=== PATIENT | female | born 1975 | race Caucasian/White ===

== ENCOUNTER 2018-01-24 20:01 | Inpatient (IN) | payer MEDICAID ==
[~2018-01-24] VITALS: Ht 167.6 cm; Wt 77.1 kg
[~2018-01-24 20:01] MED LIST: ASPI-1063 PO; ATEN-41 PO; ATOR10TA68 PO; CARV3.1246 PO; DULA1.5P SQ; FAMO-129 PO; FOLI-43 PO; GLU500 PO; LISI-209 PO
[2018-01-24 20:17] VITALS: BP_SYST 155
[2018-01-24] MEDS ORDERED: NACL 0.9% 1,000 ML IV ONE (20:59)
[2018-01-24] MEDS ORDERED: INSULIN REGULAR, HUMAN 10 UNITS/0.1 ML INJ IVP ONE (21:00)
[2018-01-24] MEDS ORDERED: ENALAPRILAT DIHYDRATE 1.25 MG/ML VIAL IVP ONE (21:00)
[2018-01-24 21:11] LABS: BASOPHILS % (AUTO) 0.8 % (0.0-2.0); EOSINOPHILS # (AUTO) 0.1 K/uL (0.0-0.4); EOSINOPHILS % (AUTO) 1.8 % (0.0-4.0); HEMATOCRIT 41.8 % (36-48); HEMOGLOBIN 14.3 g/dL (12.0-16.0); LYMPHOCYTES # (AUTO) 1.7 K/uL (1.0-5.5); LYMPHOCYTES % (AUTO) 31.3 % (20.5-51.5); MEAN CORPUSCULAR HEMOGLOBIN 33 pg (27-31); MEAN CORPUSCULAR HGB CONC 34 % (32-36); MEAN CORPUSCULAR VOLUME 97 fL (79.0-98.0); MONOCYTES # (AUTO) 0.3 K/uL (0.0-1.0); MONOCYTES % (AUTO) 4.8 % (1.7-9.3); NEUTROPHILS # (AUTO) 3.3 K/uL (1.8-7.7); NEUTROPHILS % (AUTO) 61.3 % (40.0-70.0); PLATELET COUNT (AUTO) 367 K/uL (130-430); RED BLOOD CELL COUNT(AUTO) 4.31 MIL/uL (4.2-6.2); RED CELL DISTRIBUTION WIDTH 12.4 % (9.0-15.0); WHITE BLOOD COUNT (AUTO) 5.4 K/uL (4.8-10.8)
[2018-01-24 21:13] LABS: CALCIUM 9.4 mg/dL (8.4-11.0); CREATININE 0.79 mg/dL (0.55-1.30); POTASSIUM 3.4 mmol/L (3.5-5.1)
[2018-01-24 21:17] LABS: ALBUMIN 3.4 g/dL (3.4-4.8); TOTAL BILIRUBIN 0.5 mg/dL (0.0-1.0)
[2018-01-24] MEDS ORDERED: TETRACAINE HCL 0.5% OPHTHALMIC DROPS 15 ML OP ONE ×2 (21:30→21:35)
[2018-01-24] MEDS ORDERED: ACETAMINOPHEN 325 MG TABLET PO PRN (23:45)
[2018-01-24] MEDS ORDERED: cloNIDine HCL 0.1 MG TABLET PO PRN (23:45)
[2018-01-25 00:12] VITALS: BP_SYST 135
[2018-01-25] MEDS ORDERED: INSU100I26 SQ (00:23)
[2018-01-25] MEDS ORDERED: INSU100V SQ (00:23)
[2018-01-25] MEDS ORDERED: DAPA10TA PO (00:23)
[2018-01-25 00:35] VITALS: BP_SYST 135
[2018-01-25] MEDS ORDERED: LEVOFLOXACIN 500 MG/D5W 100 ML IV ONE (01:05)
[2018-01-25] MEDS: LEVOFLOXACIN 500 MG/D5W 100 ML IV SCH (01:09)
[2018-01-25] MEDS ORDERED: POTASSIUM CHLORIDE 20 MEQ TAB.PRT.SR PO ONE (02:15)
[2018-01-25] MEDS: INSULIN REGULAR, HUMAN 100 UNITS/ML, 10 ML VIAL (novoLIN R) SUBCUT PRN ×4 (06:20→21:40)
[2018-01-25] MEDS: ATENOLOL 25 MG TABLET(TENORMIN) PO SCH (08:05)
[2018-01-25] MEDS: metFORMIN HCL 500 MG TABLET PO SCH ×2 (08:05→17:00)
[2018-01-25] MEDS: LISINOPRIL 5 MG TABLET PO SCH (08:06)
[2018-01-25] MEDS: ASPIRIN 81 MG TABLET(ECOTRIN) PO SCH (08:06)
[2018-01-25] MEDS: FOLIC ACID 1 MG TABLET PO SCH (08:06)
[2018-01-25 08:17] VITALS: BP_SYST 140
[2018-01-25 11:29] VITALS: BP_SYST 133
[2018-01-25 11:34] LABS: BILIRUBIN,URINE 2+ (NEGATIVE); BLOOD, URINE 3+ (NEGATIVE); CLARITY/URINE CLOUDY (CLEAR); COLOR,URINE AMBER (YELLOW); GLUCOSE,URINE 3+ (NEGATIVE); KETONES,URINE 3+ (NEGATIVE); LEUKOCYTE ESTERASE ,URINE NEGATIVE (NEGATIVE); NITRITE, URINE NEGATIVE (NEGATIVE); PROTEIN URINE 2+ (NEGATIVE); UROBILINOGEN,URINE 0.2 (0.2-1.0)
[2018-01-25 11:43] LABS: BARBITURATE, URINE NEGATIVE (NEG <=200); BENZODIAZEPINE, URINE NEGATIVE (NEG <=150); CANNABINOID, URINE NEGATIVE (NEG <=50); COCAINE, URINE NEGATIVE (NEG <=150); METHAMPHETAMINES SCREEN,URINE POSITIVE (NEG <=500); OPIATE, URINE NEGATIVE (NEG <=100); PHENCYCLIDINE SCREEN,URINE NEGATIVE (NEG <=25); UR TRICYCLIC ANTIDEPRESSANTS NEGATIVE (NEG <=300); URINE AMPHETAMINE POSITIVE (NEG <=500); URINE METHADONE NEGATIVE (NEG <=200); URINE OXYCODONE SCREEN NEGATIVE (NEG <=100); URINE PROPOXYPHENE SCREEN NEGATIVE (NEG <=300)
[2018-01-25 11:55] LABS: BACTERIA,URINE MODERATE /HPF (None Seen); YEAST,URINE None Seen /HPF (None Seen)
[2018-01-25 11:56] LABS: COARSE GRANULAR CASTS,URINE 1+ /LPF (None Seen); MUCUS,URINE None Seen /LPF (None Seen)
[2018-01-25 15:24] VITALS: BP_SYST 124
[2018-01-25] MEDS ORDERED: LEVOFLOXACIN 500 MG/D5W 100 ML IV SCH (16:00)
[2018-01-25 20:00] VITALS: BP_SYST 114
[2018-01-25] MEDS: NITROFURANTOIN MONOHYD/M-CRYST 100 MG CAPSULE PO SCH (21:36)
[2018-01-26] VITALS: BP_SYST 122
[2018-01-26] MEDS: LEVOFLOXACIN 500 MG/D5W 100 ML IV SCH (00:02)
[2018-01-26] MEDS: INSULIN REGULAR, HUMAN 100 UNITS/ML, 10 ML VIAL (novoLIN R) SUBCUT PRN ×2 (06:10→11:43)
[2018-01-26 06:35] LABS: BASOPHILS # (AUTO) 0.1 K/uL (0.0-0.2); BASOPHILS % (AUTO) 1.8 % (0.0-2.0); EOSINOPHILS # (AUTO) 0.2 K/uL (0.0-0.4); EOSINOPHILS % (AUTO) 3.6 % (0.0-4.0); HEMOGLOBIN 11.7 g/dL (12.0-16.0); LYMPHOCYTES # (AUTO) 1.4 K/uL (1.0-5.5); MEAN CORPUSCULAR HEMOGLOBIN 34 pg (27-31); MEAN CORPUSCULAR HGB CONC 35 % (32-36); MEAN CORPUSCULAR VOLUME 98 fL (79.0-98.0); MONOCYTES # (AUTO) 0.3 K/uL (0.0-1.0); MONOCYTES % (AUTO) 7.1 % (1.7-9.3); NEUTROPHILS # (AUTO) 2.5 K/uL (1.8-7.7); NEUTROPHILS % (AUTO) 55.5 % (40.0-70.0); PLATELET COUNT (AUTO) 277 K/uL (130-430); RED BLOOD CELL COUNT(AUTO) 3.48 MIL/uL (4.2-6.2); RED CELL DISTRIBUTION WIDTH 12.7 % (9.0-15.0); WHITE BLOOD COUNT (AUTO) 4.5 K/uL (4.8-10.8)
[2018-01-26 07:07] LABS: ALBUMIN 2.6 g/dL (3.4-4.8); CALCIUM 8.2 mg/dL (8.4-11.0); CREATININE 0.62 mg/dL (0.55-1.30); POTASSIUM 4.6 mmol/L (3.5-5.1); TOTAL BILIRUBIN 0.4 mg/dL (0.0-1.0)
[2018-01-26 08:05] VITALS: BP_SYST 132
[2018-01-26] MEDS: NITROFURANTOIN MONOHYD/M-CRYST 100 MG CAPSULE PO SCH (08:53)
[2018-01-26] MEDS: ATENOLOL 25 MG TABLET(TENORMIN) PO SCH (08:54)
[2018-01-26] MEDS: LISINOPRIL 5 MG TABLET PO SCH (08:55)
[2018-01-26] MEDS: ASPIRIN 81 MG TABLET(ECOTRIN) PO SCH (08:55)
[2018-01-26] MEDS: FOLIC ACID 1 MG TABLET PO SCH (08:55)
[2018-01-26] MEDS: metFORMIN HCL 500 MG TABLET PO SCH (08:55)
[2018-01-26 11:32] VITALS: BP_SYST 136
[2018-01-26 13:52] VITALS: BP_SYST 136
[2018-01-26] MEDS ORDERED: LEVO250T20 PO (13:56)
== END 2018-01-26 14:41 | disposition home or self-care (01) | DRG 463 ==
LOC: SED 20:01 → STU 23:35 → MERGE 23:35 → STU 23:57
PROVIDERS: ADMIT Internal Medicine; ATTEND Internal Medicine
DX: N39.0 Urinary tract infection, site not specified (principal); J18.1 Lobar pneumonia, unspecified organism; I11.0 Hypertensive heart disease with heart failure; I50.9 Heart failure, unspecified; E87.1 Hypo-osmolality and hyponatremia; J20.9 Acute bronchitis, unspecified; F10.10 Alcohol abuse, uncomplicated; F15.10 Other stimulant abuse, uncomplicated; E87.6 Hypokalemia; E11.9 Type 2 diabetes mellitus without complications; Z88.0 Allergy status to penicillin; Z79.899 Other long term (current) drug therapy; Z79.82 Long term (current) use of aspirin
CPT/HCPCS: 36415; 36600; 71045; 80053; 80061; 80307; 81000-TC; 82803-TC; 82962; 83036; 83605; 83735-TC; 85025; 87040-TC; 87086; 96361; 96374; 99285; J1815; J1956; J7030; J7050

== ENCOUNTER 2018-06-11 21:04 | Inpatient (IN) | payer MEDICAID ==
[~2018-06-11] VITALS: Ht 167.6 cm; Wt 77.1 kg
[~2018-06-11 21:04] MED LIST changes: -ASPI-1063 PO; +ASPI-1153 PO; -ATOR10TA68 PO; -CARV3.1246 PO; +DAPA10TA PO; -DULA1.5P SQ; +INSU100I26 SQ; +INSU100V SQ; +LEVO250T2 PO
[2018-06-11 21:50] VITALS: BP_SYST 125
--- NOTE | 2018-06-11 21:50 | NUR ---
Patient to ER bed Hallway 1 for evaluation. Side rails up.
--- NOTE | 2018-06-11 21:55 | NUR ---
Patient to ER via triage for evaluation of abdominal pain with nausea/vomiting x 3 days, patient also reports constipation x 2 day. Patient is awake, alert and oriented in no acute distress, vital signs stable, respirations even and unlabored, skin warm and dry to touch. Patient able to ambulate to hallway bed with family at her side. Patient to bathroom to provide urine sample. Awaiting evaluation by ER MD, will continue to observe and assess.
--- NOTE | 2018-06-11 22:15 | NUR ---
ER at bedside examining patient.
[2018-06-11] MEDS ORDERED: NACL 0.9% 1,000 ML IV ONE (22:22)
[2018-06-11] MEDS ORDERED: ONDANSETRON HCL 4 MG/2 ML VIAL IVP ONE (22:30)
[2018-06-11] MEDS ORDERED: MORPHINE 4 MG/ML INJ. SYRINGE IM ONE (22:30)
[2018-06-11 22:44] LABS: BILIRUBIN,URINE NEGATIVE (NEGATIVE); BLOOD, URINE TRACE (NEGATIVE); CLARITY/URINE HAZY (CLEAR); COLOR,URINE YELLOW (YELLOW); GLUCOSE,URINE 3+ (NEGATIVE); KETONES,URINE 3+ (NEGATIVE); LEUKOCYTE ESTERASE ,URINE NEGATIVE (NEGATIVE); NITRITE, URINE NEGATIVE (NEGATIVE); PROTEIN URINE 2+ (NEGATIVE); UROBILINOGEN,URINE 0.2 (0.2-1.0)
[2018-06-11 22:47] LABS: RBC,URINE 0-3 /HPF (0-3)
[2018-06-11 22:48] LABS: BACTERIA,URINE MANY /HPF (None Seen); WBC,URINE 0-3 /HPF (0-3)
--- NOTE | 2018-06-11 22:53 | NUR ---
Confirmed with Dr Kenny that he wanted the Morphine given IV and not IM. Patient medicated with Morphine 4 mg per MD order.
--- NOTE | 2018-06-11 23:00 | NUR ---
Patient resting quietly in no acute distress, vital signs stable, respirations even and unlabored, skin warm and dry to touch. Awaiting dispo.
[2018-06-11 23:45] LABS: BASOPHILS # (AUTO) 0.1 K/uL (0.0-0.2); BASOPHILS % (AUTO) 0.7 % (0.0-2.0); EOSINOPHILS # (AUTO) 0.2 K/uL (0.0-0.4); HEMATOCRIT 41.3 % (36-48); HEMOGLOBIN 13.7 g/dL (12.0-16.0); LYMPHOCYTES # (AUTO) 1.2 K/uL (1.0-5.5); LYMPHOCYTES % (AUTO) 14.8 % (20.5-51.5); MEAN CORPUSCULAR HEMOGLOBIN 33 pg (27-31); MEAN CORPUSCULAR HGB CONC 33 % (32-36); MEAN CORPUSCULAR VOLUME 99 fL (79.0-98.0); MONOCYTES # (AUTO) 0.4 K/uL (0.0-1.0); MONOCYTES % (AUTO) 4.4 % (1.7-9.3); NEUTROPHILS # (AUTO) 6.2 K/uL (1.8-7.7); NEUTROPHILS % (AUTO) 77.1 % (40.0-70.0); PLATELET COUNT (AUTO) 302 K/uL (130-430); RED BLOOD CELL COUNT(AUTO) 4.18 MIL/uL (4.2-6.2); RED CELL DISTRIBUTION WIDTH 13.5 % (9.0-15.0); WHITE BLOOD COUNT (AUTO) 8.1 K/uL (4.8-10.8)
--- NOTE | 2018-06-12 | NUR ---
Patient resting quietly in no acute distress, awaiting dispo.
[2018-06-12 00:07] LABS: PROTHROMBIN TIME 9.7 SECS (9.5-12.5)
[2018-06-12 00:49] LABS: POTASSIUM 3.7 mmol/L (3.5-5.1)
[2018-06-12 00:50] LABS: CREATININE 0.66 mg/dL (0.55-1.30); TOTAL BILIRUBIN 0.4 mg/dL (0.0-1.0)
[2018-06-12 00:53] LABS: ALBUMIN 2.7 g/dL (3.4-4.8)
[2018-06-12] MEDS ORDERED: HYDROmorphone 1 MG INJ. 1 MG/ML AMPUL IVP ONE (01:00)
[2018-06-12] MEDS ORDERED: fentaNYL CITRATE/PF 100 MCG/2 ML AMP IVP ONE (01:45)
[2018-06-12] MEDS ORDERED: ONDANSETRON HCL 4 MG/2 ML VIAL IVP PRN (02:30)
[2018-06-12] MEDS ORDERED: ACETAMINOPHEN 325 MG TABLET PO PRN (02:30)
[2018-06-12] MEDS ORDERED: SSNOVOLOG SUBCUT (02:47)
[2018-06-12 03:30] VITALS: BP_SYST 121
--- NOTE | 2018-06-12 03:30 | NUR ---
ADMISSION NOTE Received patient from ER via gurney. Patient admitted with diagnosis of PANCREATITIS. Patient is awake, alert, oriented X 4. Patient oriented to hospital room, call light, toileting, pain management and safety-teach back done. Patient informed that JAYNA will be HER nurse and that their room number is 120B. Personal belongings checked and Belongings List documented. Call light within reach.
--- NOTE | 2018-06-12 03:30 | NUR ---
Patient will be admitted to care of Lewis AYOUB. Admitted to tele unit. Will go to room 120B. Belongings list completed. Summary report printed. Report will be given at bedside.
[2018-06-12] MEDS: NACL 0.9% 1,000 ML IV SCH ×3 (03:33→20:27)
[2018-06-12] MEDS: MORPHINE 4 MG/ML INJ. SYRINGE IVP PRN ×3 (04:09→13:13)
--- NOTE | 2018-06-12 05:24 | NUR ---
CONSULTATION PAGED/CALLED Reason for Consultation: PANCREATITIS Person Who was Notified: JOYCE Consulting Physician: DR. JONES; ONCALL-PANCREATITIS Pickle Cutter Specialty: GI Ordering Physician: SHUKRI VEGA
--- NOTE | 2018-06-12 05:30 | NUR ---
Rounds: Patient is resting in bed with eyes closed, not showing any acute distress. Breathing is even and unlabored. IV fluids infusing well to patient's IV site. Call light is with patient. Safety, fall precautions in place. Will continue to monitor.
[2018-06-12] MEDS: PANTOPRAZOLE SODIUM 40 MG/VIAL (PROTONIX) IVP SCH (06:02)
[2018-06-12 06:12] LABS: BASOPHILS % (AUTO) 0.7 % (0.0-2.0); EOSINOPHILS # (AUTO) 0.3 K/uL (0.0-0.4); EOSINOPHILS % (AUTO) 3.9 % (0.0-4.0); HEMATOCRIT 40.8 % (36-48); HEMOGLOBIN 13.4 g/dL (12.0-16.0); LYMPHOCYTES # (AUTO) 1.2 K/uL (1.0-5.5); MEAN CORPUSCULAR HEMOGLOBIN 33 pg (27-31); MEAN CORPUSCULAR HGB CONC 33 % (32-36); MEAN CORPUSCULAR VOLUME 100 fL (79.0-98.0); MONOCYTES # (AUTO) 0.5 K/uL (0.0-1.0); MONOCYTES % (AUTO) 7.9 % (1.7-9.3); NEUTROPHILS # (AUTO) 4.9 K/uL (1.8-7.7); NEUTROPHILS % (AUTO) 70.5 % (40.0-70.0); PLATELET COUNT (AUTO) 294 K/uL (130-430); RED CELL DISTRIBUTION WIDTH 13.2 % (9.0-15.0); WHITE BLOOD COUNT (AUTO) 6.9 K/uL (4.8-10.8)
[2018-06-12 06:23] LABS: ALBUMIN 2.7 g/dL (3.4-4.8); CALCIUM 8.2 mg/dL (8.4-11.0); CREATININE 0.66 mg/dL (0.55-1.30); TOTAL BILIRUBIN 0.7 mg/dL (0.0-1.0)
--- NOTE | 2018-06-12 06:50 | NUR ---
Closing note: Patient is sleeping in bed, no signs or symptoms of acute distress noted. IV fluids infusing well to patient's right forearm, site is patent and benign. Call light is with patient. All needs met and attended to. Will endorse care to dayshift RN.
--- NOTE | 2018-06-12 07:10 | NUR ---
Seen by Dr. Modi: Patient seen by Dr. Modi at this time. Received order to change patient's diet to clear liquids. RN will input order.
[2018-06-12 08:00] VITALS: BP_SYST 147
[2018-06-12] MEDS ORDERED: LORazepam 2 MG/ML VIAL IVP PRN (08:00)
--- NOTE | 2018-06-12 08:00 | NUR ---
Initial notes: Patient on bed sleeping. Stable. I.V. access patent. Safety measures in placed. Call light within reach. Report received at bedside.
--- NOTE | 2018-06-12 08:02 | NUR ---
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
[2018-06-12] MEDS ORDERED: FOLIC ACID 1 MG TABLET PO SCH (09:00)
[2018-06-12] MEDS: THIAMINE HCL 100 MG TABLET PO SCH (09:28)
[2018-06-12] MEDS: ATENOLOL 25 MG TABLET(TENORMIN) PO SCH (09:29)
[2018-06-12] MEDS: NEPHROVITE, (FOLIC ACID/VITAMIN B COMP W-C 1 TAB) PO SCH (09:29)
[2018-06-12] MEDS: LISINOPRIL 5 MG TABLET PO SCH (09:29)
--- NOTE | 2018-06-12 09:43 | NUR ---
rounds: Patient woke up and complaining of back pain. Due pain meds given.
[2018-06-12] MEDS ORDERED: INSULIN REGULAR, HUMAN 100 UNITS/ML, 10 ML VIAL SUBCUT SCH (11:30)
--- NOTE | 2018-06-12 12:24 | NUR ---
rounds: patient sleeping. no distress noted.
[2018-06-12 12:57] VITALS: BP_SYST 143
--- NOTE | 2018-06-12 13:27 | NUR ---
rounds: assisted patient to the toilet. able to walk and tolerated well.
[2018-06-12] MEDS ORDERED: DEXTROSE 50%-WATER 50 ML DISP.SYRIN IVP PRN ×2 (14:45)
[2018-06-12] MEDS ORDERED: GLUCOSE 15 GM GEL (in 37.5 GM TUBE) PO PRN ×2 (14:45)
--- NOTE | 2018-06-12 16:00 | NUR ---
rounds: patient sleeping. no distress noted.
[2018-06-12 16:32] VITALS: BP_SYST 136
[2018-06-12] MEDS: INSULIN REGULAR, HUMAN 100 UNITS/ML, 10 ML VIAL (novoLIN R) SUBCUT PRN ×2 (17:06→20:50)
--- NOTE | 2018-06-12 18:56 | NUR ---
closing notes: Patient on bed resting. Stable. Needs attended. Safety measures in placed. Call light within reach. Report will be given to overnight stocker.
--- NOTE | 2018-06-12 19:42 | NUR ---
Initial note: Received handoff report from dayshift RN. Patient is in bed sleeping. Does not show any signs or symptoms of acute distress. Patient is on room air, breathing is unlabored with even chest rise and fall. NS infusing at 125 ML/HR to patient's right forearm IV, site is patent and benign. SCD's in place. Bed is locked in lowest position, side rails raised, bed alarm on, room close to nurses station. Call light is with patient. Will continue with plan of care.
[2018-06-12 20:15] VITALS: BP_SYST 120
--- NOTE | 2018-06-12 21:31 | NUR ---
Assisted to bathroom: Patient was assisted by RN to the bathroom to void. Patient was able to ambulate with steady gait. Patient denies difficulty breathing or pain while ambulating. Assisted patient to a chair at bedside per patient request. Instructed patient to use call light for any needs, patient verbalized understanding. Safety, fall precautions observed. Will continue monitoring.
--- NOTE | 2018-06-12 23:40 | NUR ---
Rounds: Patient is resting in bed with eyes closed, no acute distress noted. Patient's breathing is unlabored with even chest rise and fall. IV fluids infusing well to IV site. Call light is with patient. Safety and fall precautions in place. Will continue monitoring.
[2018-06-13] VITALS: BP_SYST 136
--- NOTE | 2018-06-13 01:45 | NUR ---
Rounds: Patient is asleep in bed, no signs or symptoms of acute distress noted. Patient's respirations are even and unlabored on room air. IV fluids infusing well to site, no infiltration or redness at site. Safety and fall precautions in place. Call light is with patient. Will continue monitoring.
--- NOTE | 2018-06-13 03:29 | NUR ---
Assisted to bathroom: Patient was assisted to bathroom to void. RN remained at patient's side during ambulation. Patient was able to ambulate with steady gait, requiring little to no assistance. No complaints of pain or shortness of breath while ambulating. Assisted patient back to bed, resumed IVF per MD order. Safety and fall precautions observed. Call light is with patient. Will continue monitoring.
[2018-06-13] MEDS: NACL 0.9% 1,000 ML IV SCH ×2 (03:56→12:29)
[2018-06-13] MEDS: MORPHINE 4 MG/ML INJ. SYRINGE IVP PRN (04:08)
--- NOTE | 2018-06-13 04:16 | NUR ---
Pain management: Patient complained of 7/10 pain to her left upper abdomen. PRN Morphine 2MG indicated. Educated patient regarding medication indication and side effects, patient verbalized understanding. Administered medication intravenously per MD order, patient shows no acute distress. Will continue monitoring.
[2018-06-13] MEDS: PANTOPRAZOLE SODIUM 40 MG/VIAL (PROTONIX) IVP SCH (06:29)
--- NOTE | 2018-06-13 06:30 | NUR ---
Closing note: Patient is asleep in bed, no acute distress noted. Patient's breathing is even and unlabored. IV fluids infusing well to patient's right forearm. Most recent bedside blood glucose was 144, no insulin coverage provided per sliding scale. All needs met and attended to. Call light is with patient. Safety, fall precautions observed. Will endorse care to dayshift RN.
[2018-06-13 06:44] LABS: CALCIUM 7.6 mg/dL (8.4-11.0); CREATININE 0.53 mg/dL (0.55-1.30); POTASSIUM 3.4 mmol/L (3.5-5.1)
[2018-06-13 06:57] LABS: ALBUMIN 2.3 g/dL (3.4-4.8); TOTAL BILIRUBIN 0.5 mg/dL (0.0-1.0)
[2018-06-13 08:00] VITALS: BP_SYST 161
[2018-06-13] MEDS ORDERED: NACL 0.9% 1,000 ML IV ONE (08:00)
[2018-06-13] MEDS ORDERED: chlordiazePOXIDE HCL 25 MG CAPSULE PO SCH (08:00)
--- NOTE | 2018-06-13 08:00 | NUR ---
initial notes rec patient awake alert with hob elevated. ivf infusing well on the r forearm.no infiltration noted. hob elevated and resp easy and unlabored. no acute ditress noted. denies pain at this time. call light within reached and knows when to call for assists. bed in low position and side rails up and locked. seen by dr juárez and dr vizcaino at bedside. ambulates to the br with min assists and max well. will continue to monitor patient
[2018-06-13] MEDS: THIAMINE HCL 100 MG TABLET PO SCH (09:08)
[2018-06-13] MEDS: NEPHROVITE, (FOLIC ACID/VITAMIN B COMP W-C 1 TAB) PO SCH (09:08)
[2018-06-13] MEDS: ATENOLOL 25 MG TABLET(TENORMIN) PO SCH (09:08)
[2018-06-13] MEDS: LISINOPRIL 5 MG TABLET PO SCH (09:09)
[2018-06-13] MEDS: chlordiazePOXIDE HCL 25 MG CAPSULE PO SCH ×3 (09:09→17:40)
--- NOTE | 2018-06-13 09:20 | NUR ---
Nutrition Update Jey Scale 17 noted. Pt admitted for pancreatitis Diet: full liquid diet BMI: 27.4 kg/m2 RD to follow per nutrition care standards.
--- NOTE | 2018-06-13 10:30 | NUR ---
rounds due meds were given and went to sleep after. call light within reached.
[2018-06-13 12:00] VITALS: BP_SYST 140
--- NOTE | 2018-06-13 12:30 | NUR ---
rounds blood sugar was checked and no hypo hyperglycemic reaction noted, friend at bed and coaching patient to eat . call [facility] within [id number]..
[2018-06-13] MEDS: INSULIN REGULAR, HUMAN 100 UNITS/ML, 10 ML VIAL (novoLIN R) SUBCUT PRN ×2 (12:34→17:47)
--- NOTE | 2018-06-13 14:00 | NUR ---
rounds asleep when rounds made. call light withn reached.
[2018-06-13 16:00] VITALS: BP_SYST 128
--- NOTE | 2018-06-13 16:00 | NUR ---
rounds ambulates to the br at intervals. denies pain. bed in the lowest position. call light within reached.
--- NOTE | 2018-06-13 18:30 | NUR ---
closing notes pt wants to go home and dr bonilla was paged. awaiting to call back. no sob noted, no h ypo hyperglycemic reaction noted. call light within reached.
--- NOTE | 2018-06-13 19:45 | NUR ---
OPENING NOTES Pt and endorsement received from day shift nurse. Pt is resting with both eyes closed. With visible chest rise and fall noted. No signs of acute distress noted. Call light with pt, bed alarm on and at its lowest level. Will continue to monitor.
--- NOTE | 2018-06-13 20:08 | NUR ---
SPOKE TO DR. MONREAL Spoke to Dr. Monreal over the phone about pt wanting to go home. Dr. Monreal said to let her sign an AMA form once pt has decided to go home.
--- NOTE | 2018-06-13 20:10 | NUR ---
SPOKE TO PATIENT ABOUT AMA FORM Spoke to the pt and let her know she will sign an AMA form once she decided to go home. Educated pt that its beneficial that she stays for her to be observed and properly treated but pt insists on going home. Informed Charge Nurse Yan.
--- NOTE | 2018-06-13 20:15 | NUR ---
PT SIGNED AMA FORM Pt signed AMA form. IVF removed and identification arm band removed.
--- NOTE | 2018-06-13 20:30 | NUR ---
PT WENT HOME Pt left the room with a family member, pt ambulatory and no signs of acute distress noted. Informed Charge Nurse Yan.
--- NOTE | 2018-06-13 22:22 | NUR ---
SPOKE TO DR. MONREAL Spoke to Dr. Monreal over the phone about pt wanting to go home. Dr. Monreal said to let her sign an AMA form once pt has decided to go home. Addendum: 06/13/18 at 2224 by Ela Roche RN INCORRECT TIME.
== END 2018-06-13 20:23 | disposition left against medical advice (07) | DRG 282 ==
LOC: SED 21:04 → STU 06-12 02:20
PROVIDERS: ADMIT Internal Medicine; ATTEND Internal Medicine
DX: K85.20 Alcohol induced acute pancreatitis without necrosis or infection (principal); E43 Unspecified severe protein-calorie malnutrition; I11.0 Hypertensive heart disease with heart failure; I50.9 Heart failure, unspecified; Z53.21 Procedure and treatment not carried out due to patient leaving prior to being seen by health care provider; E11.9 Type 2 diabetes mellitus without complications; F10.20 Alcohol dependence, uncomplicated; F32.9 Major depressive disorder, single episode, unspecified; F17.210 Nicotine dependence, cigarettes, uncomplicated; F15.10 Other stimulant abuse, uncomplicated; Z88.0 Allergy status to penicillin; Z79.82 Long term (current) use of aspirin; Z79.899 Other long term (current) drug therapy; Z98.891 History of uterine scar from previous surgery
CPT/HCPCS: 36415; 76700-TC; 80053; 80061; 81000-TC; 82150-TC; 82962; 83690-TC; 85025; 85610-TC; 87086; 96361; 96374; 96375; 99285; C9113; J1170; J1815; J2270; J2405; J3010; J7030

== ENCOUNTER 2018-12-01 09:49 | Inpatient (IN) | payer MEDICAID ==
[~2018-12-01] VITALS: Ht 167.6 cm; Wt 73.0 kg
[2018-12-01] VITALS (12 sets, daily range): BP systolic 102–184
[~2018-12-01 09:49] MED LIST changes: -INSU100I26 SQ; -INSU100V SQ; -LEVO250T2 PO; +SSNOVOLOG SUBCUT
[2018-12-01] MEDS ORDERED: NACL 0.9% 1,000 ML IV ONE (10:15)
[2018-12-01 10:46] LABS: BASOPHILS # (AUTO) 0.1 K/uL (0.0-0.2); BASOPHILS % (AUTO) 0.8 % (0.0-2.0); EOSINOPHILS % (AUTO) 0.1 % (0.0-4.0); HEMATOCRIT 45.7 % (36-48); HEMOGLOBIN 14.6 g/dL (12.0-16.0); LYMPHOCYTES # (AUTO) 1.2 K/uL (1.0-5.5); LYMPHOCYTES % (AUTO) 8.2 % (20.5-51.5); MEAN CORPUSCULAR HEMOGLOBIN 33 pg (27-31); MEAN CORPUSCULAR HGB CONC 32 % (32-36); MEAN CORPUSCULAR VOLUME 105 fL (79.0-98.0); MONOCYTES # (AUTO) 0.6 K/uL (0.0-1.0); NEUTROPHILS # (AUTO) 12.6 K/uL (1.8-7.7); NEUTROPHILS % (AUTO) 86.9 % (40.0-70.0); PLATELET COUNT (AUTO) 437 K/uL (130-430); RED BLOOD CELL COUNT(AUTO) 4.37 MIL/uL (4.2-6.2); RED CELL DISTRIBUTION WIDTH 14.6 % (9.0-15.0); WHITE BLOOD COUNT (AUTO) 14.6 K/uL (4.8-10.8)
[2018-12-01 10:58] LABS: CALCIUM 9.9 mg/dL (8.4-11.0); CREATININE 1.39 mg/dL (0.55-1.30); POTASSIUM 5.4 mmol/L (3.5-5.1)
[2018-12-01 11:03] LABS: ALBUMIN 3.7 g/dL (3.4-4.8); TOTAL BILIRUBIN 0.6 mg/dL (0.0-1.0)
[2018-12-01] MEDS ORDERED: INSULIN REGULAR, HUMAN 100 UNITS in NS 99 ML IV ONE ×2 (11:15)
[2018-12-01] MEDS ORDERED: INSULIN REGULAR, HUMAN 10 UNITS/0.1 ML INJ IVP ONE (11:15)
[2018-12-01] MEDS ORDERED: LORazepam 2 MG/ML VIAL (FOR ER USE) IVP ONE (12:00)
[2018-12-01] MEDS ORDERED: SODIUM BICARBONATE 8.4% JECT 50 MEQ in 0.45% NACL 1,000 ML IV SCH (12:15)
[2018-12-01] MEDS ORDERED: NACL 0.9% 1,000 ML IV SCH ×3 (13:00→23:30)
[2018-12-01] MEDS ORDERED: CORCR10 PO (13:05)
[2018-12-01] MEDS ORDERED: FURO-150 PO (13:05)
[2018-12-01] MEDS ORDERED: POTA8TAB4 PO (13:05)
[2018-12-01] MEDS ORDERED: FERR140T2 PO (13:05)
[2018-12-01] MEDS ORDERED: DOXY100C PO (13:05)
[2018-12-01] MEDS ORDERED: GABA-529 PO (13:05)
[2018-12-01] MEDS ORDERED: SPIR25TA6 PO (13:05)
[2018-12-01] MEDS ORDERED: DEXTROSE 50% JECT 50 ML DISP.SYRIN IVP PRN (14:30)
[2018-12-01] MEDS ORDERED: INSULIN REGULAR, HUMAN 100 UNITS in NS 99 ML IV PRN ×4 (14:30→16:15)
[2018-12-01 15:23] LABS: BASOPHILS # (AUTO) 0.2 K/uL (0.0-0.2); HEMATOCRIT 41.5 % (36-48); HEMOGLOBIN 13.8 g/dL (12.0-16.0); LYMPHOCYTES # (AUTO) 0.9 K/uL (1.0-5.5); LYMPHOCYTES % (AUTO) 5.8 % (20.5-51.5); MEAN CORPUSCULAR HEMOGLOBIN 36 pg (27-31); MEAN CORPUSCULAR HGB CONC 33 % (32-36); MEAN CORPUSCULAR VOLUME 108 fL (79.0-98.0); MONOCYTES # (AUTO) 0.7 K/uL (0.0-1.0); MONOCYTES % (AUTO) 4.5 % (1.7-9.3); NEUTROPHILS # (AUTO) 13.3 K/uL (1.8-7.7); NEUTROPHILS % (AUTO) 88.7 % (40.0-70.0); PLATELET COUNT (AUTO) 302 K/uL (130-430); RED BLOOD CELL COUNT(AUTO) 3.85 MIL/uL (4.2-6.2); RED CELL DISTRIBUTION WIDTH 14.7 % (9.0-15.0)
[2018-12-01 15:27] LABS: ANION GAP 28 (5-15); CALCIUM 9.3 mg/dL (8.4-11.0); CHLORIDE 91 mmol/L (98-107); CREATININE 1.24 mg/dL (0.55-1.30); POTASSIUM 5.7 mmol/L (3.5-5.1); SODIUM SERUM 124 mmol/L (136-145); UREA NITROGEN, BLOOD 35 mg/dL (8-21)
[2018-12-01 15:28] LABS: GFR AFRICAN AMERICAN 60 mL/min (>90)
[2018-12-01 15:30] LABS: ACETONE, SERUM MODERATE (NEGATIVE)
[2018-12-01 15:35] LABS: TOTAL BILIRUBIN 0.5 mg/dL (0.0-1.0)
[2018-12-01 15:36] LABS: ALANINE AMINOTRANSFERASE 82 U/L (12-78); ALBUMIN 3.2 g/dL (3.4-4.8); ASPARTATE AMINOTRANSFERASE 56 U/L (10-37); PHOSPHORUS 7.1 mg/dL (2.7-4.5)
[2018-12-01] MEDS ORDERED: SODIUM BICARBONATE 8.4% JECT 50 MEQ/50 ML SYRINGE IVP ONE (17:45)
[2018-12-01] MEDS ORDERED: COMMUNICATION ORDER XX ONE (17:45)
[2018-12-01] MEDS ORDERED: LEVOFLOXACIN 500 MG/D5W 100 ML IV SCH (18:00)
[2018-12-01] MEDS: FOLIC ACID IV SCH (18:40)
[2018-12-01] MEDS: NACL 0.9% IV SCH (18:40)
[2018-12-01] MEDS: THIAMINE HCL IV SCH (18:40)
[2018-12-01] MEDS: MVI IV SCH (18:40)
[2018-12-01 19:22] LABS: AMYLASE 217 U/L (0-100); ANION GAP 28 (5-15); CALCIUM 9.4 mg/dL (8.4-11.0); CHLORIDE 92 mmol/L (98-107); CREATININE 1.32 mg/dL (0.55-1.30); GLUCOSE 304 mg/dL (70-99); POTASSIUM 4.6 mmol/L (3.5-5.1); SODIUM SERUM 125 mmol/L (136-145); UREA NITROGEN, BLOOD 37 mg/dL (8-21)
[2018-12-01 19:23] LABS: ALCOHOL, BLOOD < 3 mg/dL (<10); GFR AFRICAN AMERICAN 56 mL/min (>90)
[2018-12-01 19:25] LABS: LIPASE 3936 U/L (73-393)
[2018-12-01 19:27] LABS: GLUCOSE 439 mg/dL (70-99)
[2018-12-01 19:50] LABS: BILIRUBIN,URINE 1+ (NEGATIVE); BLOOD, URINE 3+ (NEGATIVE); COLOR,URINE YELLOW (YELLOW); GLUCOSE,URINE 3+ (NEGATIVE); KETONES,URINE 3+ (NEGATIVE); LEUKOCYTE ESTERASE ,URINE NEGATIVE (NEGATIVE); NITRITE, URINE NEGATIVE (NEGATIVE); PROTEIN URINE 2+ (NEGATIVE); UROBILINOGEN,URINE 0.2 (0.2-1.0)
[2018-12-01 19:53] LABS: CLARITY/URINE SLIGHTLY HAZY (CLEAR)
[2018-12-01 20:11] LABS: BACTERIA,URINE FEW /HPF (None Seen); WBC,URINE 0-3 /HPF (0-3)
[2018-12-01] MEDS: KCL 20 mEq in NS 1000 mL 1,000 ML IV SCH (20:15)
[2018-12-01] MEDS ORDERED: KCL 20 mEq in NS 1000 mL 1,000 ML IV ONE (20:27)
[2018-12-01] MEDS ORDERED: MORPHINE 4 MG/ML INJ. SYRINGE IVP PRN (21:45)
[2018-12-01] MEDS: MORPHINE 2 MG/ML INJ. SYRINGE IVP PRN (21:50)
[2018-12-01 22:28] LABS: CALCIUM 8.8 mg/dL (8.4-11.0); CREATININE 1.2 mg/dL (0.55-1.30); POTASSIUM 4.6 mmol/L (3.5-5.1)
[2018-12-01 22:32] LABS: PHOSPHORUS 4.3 mg/dL (2.7-4.5)
[2018-12-02] VITALS (24 sets, daily range): BP systolic 127–177
[2018-12-02] MEDS: cloNIDine HCL 0.1 MG TABLET PO PRN (01:36)
[2018-12-02 03:19] LABS: CALCIUM 8.4 mg/dL (8.4-11.0); CREATININE 1.13 mg/dL (0.55-1.30); PHOSPHORUS 2.7 mg/dL (2.7-4.5); POTASSIUM 4.8 mmol/L (3.5-5.1)
[2018-12-02] MEDS ORDERED: D5/0.45 NS 1,000 ML IV SCH (03:45)
[2018-12-02] MEDS: MORPHINE 2 MG/ML INJ. SYRINGE IVP PRN ×2 (04:00→12:06)
[2018-12-02] MEDS ORDERED: KCL 20 mEq in NS 1000 mL 1,000 ML IV ONE (04:55)
[2018-12-02] MEDS: KCL 20 mEq in NS 1000 mL 1,000 ML IV SCH ×3 (04:57→18:46)
[2018-12-02] MEDS ORDERED: D5W 1,000 ML IV PRN (05:52)
[2018-12-02] MEDS ORDERED: DEXTROSE 50% JECT 50 ML DISP.SYRIN IVP PRN (06:00)
[2018-12-02] MEDS ORDERED: INSULIN REGULAR, HUMAN 100 UNITS/ML, 10 ML VIAL (novoLIN R) SUBCUT PRN (06:00)
[2018-12-02] MEDS ORDERED: GLUCOSE 15 GM GEL (in 37.5 GM TUBE) PO PRN (06:00)
[2018-12-02] MEDS ORDERED: HYDROcodone/ACETAMIN 10-325 MG TAB PO PRN (06:00)
[2018-12-02] MEDS ORDERED: LORazepam 2 MG/ML VIAL IVP PRN (06:00)
[2018-12-02] MEDS ORDERED: ONDANSETRON HCL 4 MG/2 ML VIAL IVP PRN (06:00)
[2018-12-02 06:48] LABS: BASOPHILS # (AUTO) 0.1 K/uL (0.0-0.2); BASOPHILS % (AUTO) 0.5 % (0.0-2.0); EOSINOPHILS % (AUTO) 0.1 % (0.0-4.0); HEMATOCRIT 39.3 % (36-48); LYMPHOCYTES # (AUTO) 0.9 K/uL (1.0-5.5); LYMPHOCYTES % (AUTO) 7.9 % (20.5-51.5); MEAN CORPUSCULAR HEMOGLOBIN 34 pg (27-31); MEAN CORPUSCULAR HGB CONC 33 % (32-36); MEAN CORPUSCULAR VOLUME 102 fL (79.0-98.0); MONOCYTES # (AUTO) 0.7 K/uL (0.0-1.0); MONOCYTES % (AUTO) 5.5 % (1.7-9.3); NEUTROPHILS # (AUTO) 10.2 K/uL (1.8-7.7); PLATELET COUNT (AUTO) 231 K/uL (130-430); RED BLOOD CELL COUNT(AUTO) 3.85 MIL/uL (4.2-6.2); WHITE BLOOD COUNT (AUTO) 11.8 K/uL (4.8-10.8)
[2018-12-02 07:00] LABS: RED CELL DISTRIBUTION WIDTH 14.7 % (9.0-15.0)
[2018-12-02 07:37] LABS: ALBUMIN 2.4 g/dL (3.4-4.8); BILIRUBIN,DIRECT 0.1 mg/dL (0.0-0.3); THYROID STIMULATING HORMONE 3.79 uIu/mL (0.36-3.74); TOTAL BILIRUBIN 0.4 mg/dL (0.0-1.0)
[2018-12-02 07:49] LABS: POTASSIUM 4.8 mmol/L (3.5-5.1)
[2018-12-02 07:51] LABS: CALCIUM 8.2 mg/dL (8.4-11.0)
[2018-12-02 07:52] LABS: CREATININE 1.18 mg/dL (0.55-1.30); PHOSPHORUS 1.2 mg/dL (2.7-4.5)
[2018-12-02] MEDS ORDERED: metFORMIN HCL 500 MG TABLET PO SCH (08:00)
[2018-12-02 08:08] LABS: BARBITURATE, URINE NEGATIVE (NEG <=200); BENZODIAZEPINE, URINE POSITIVE (NEG <=150); CANNABINOID, URINE NEGATIVE (NEG <=50); COCAINE, URINE NEGATIVE (NEG <=150); METHAMPHETAMINES SCREEN,URINE POSITIVE (NEG <=500); OPIATE, URINE POSITIVE (NEG <=100); PHENCYCLIDINE SCREEN,URINE NEGATIVE (NEG <=25); UR TRICYCLIC ANTIDEPRESSANTS NEGATIVE (NEG <=300); URINE AMPHETAMINE POSITIVE (NEG <=500); URINE METHADONE NEGATIVE (NEG <=200); URINE OXYCODONE SCREEN NEGATIVE (NEG <=100); URINE PROPOXYPHENE SCREEN NEGATIVE (NEG <=300)
[2018-12-02] MEDS: LISINOPRIL 5 MG TABLET PO SCH (08:52)
[2018-12-02] MEDS: FERROUS SULFATE 140 MG TABLET.ER PO SCH (08:52)
[2018-12-02] MEDS: ATENOLOL 25 MG TABLET(TENORMIN) PO SCH (08:52)
[2018-12-02] MEDS: FOLIC ACID 1 MG TABLET PO SCH (08:52)
[2018-12-02] MEDS: FAMOTIDINE PF 20 MG/2 ML VIAL IVP SCH ×2 (08:52→21:44)
[2018-12-02] MEDS ORDERED: FUROSEMIDE 20 MG TABLET PO SCH (09:00)
[2018-12-02] MEDS ORDERED: FAMOTIDINE 20 MG TABLET PO SCH (09:00)
[2018-12-02] MEDS: CARVEDILOL 3.125 MG TABLET (COREG) PO SCH ×2 (09:00→21:45)
[2018-12-02] MEDS ORDERED: NON-FORMULARY MEDICATION (Dapagliflozin Propanediol (Farxiga) 10 MG) PO SCH (09:00)
[2018-12-02] MEDS ORDERED: SPIRONOLACTONE 25 MG TABLET (ALDACTONE) PO SCH (09:00)
[2018-12-02] MEDS ORDERED: CARVEDILOL PHOSPHATE 10 MG CPMP.24HR ( COREG CR) PO SCH (09:00)
[2018-12-02] MEDS ORDERED: DOXYCYCLINE HYCLATE 100 MG CAPSULE PO SCH (09:00)
[2018-12-02] MEDS ORDERED: metroNIDAZOLE 500 mg/NS 100 ML IV ONE (10:00)
[2018-12-02 11:24] LABS: CALCIUM 8.1 mg/dL (8.4-11.0); CREATININE 1.06 mg/dL (0.55-1.30); POTASSIUM 4.3 mmol/L (3.5-5.1)
[2018-12-02] MEDS: metroNIDAZOLE 500 mg/NS 100 ML IV SCH ×2 (14:06→21:44)
[2018-12-02 15:01] LABS: CALCIUM 8.1 mg/dL (8.4-11.0); CREATININE 1.08 mg/dL (0.55-1.30)
[2018-12-02] MEDS: CEFEPIME 1 GM in D5W 50 ML IV SCH (17:33)
[2018-12-02 18:42] LABS: CALCIUM 7.9 mg/dL (8.4-11.0); CREATININE 1.03 mg/dL (0.55-1.30); PHOSPHORUS 1.2 mg/dL (2.7-4.5); POTASSIUM 3.8 mmol/L (3.5-5.1)
[2018-12-02] MEDS: FOLIC ACID IV SCH (18:46)
[2018-12-02] MEDS: MVI IV SCH (18:46)
[2018-12-02] MEDS: NACL 0.9% IV SCH (18:46)
[2018-12-02] MEDS: THIAMINE HCL IV SCH (18:46)
[2018-12-02] MEDS: GABAPENTIN 100 MG CAPSULE PO SCH (21:44)
[2018-12-02] MEDS: KCL 20 mEq in D5/0.45NS 1000mL 1,000 ML IV SCH (21:50)
[2018-12-02] MEDS ORDERED: KCL 20 mEq in D5/0.45NS 1000mL 1,000 ML IV ONE (21:54)
[2018-12-02 22:29] LABS: CALCIUM 7.7 mg/dL (8.4-11.0); CREATININE 0.96 mg/dL (0.55-1.30); POTASSIUM 3.8 mmol/L (3.5-5.1)
[2018-12-02 22:33] LABS: PHOSPHORUS 1.2 mg/dL (2.7-4.5)
[2018-12-02] MEDS: HYDROcodone/ACETAMIN 5-325 MG TAB (NORCO/ VICODIN) PO PRN (23:05)
[2018-12-03] VITALS (24 sets, daily range): BP systolic 142–194
[2018-12-03] MEDS: cloNIDine HCL 0.1 MG TABLET PO PRN (02:02)
[2018-12-03 03:12] LABS: CALCIUM 7.7 mg/dL (8.4-11.0); CREATININE 0.88 mg/dL (0.55-1.30); PHOSPHORUS 1.5 mg/dL (2.7-4.5); POTASSIUM 3.7 mmol/L (3.5-5.1)
[2018-12-03] MEDS: KCL 20 mEq in NS 1000 mL 1,000 ML IV SCH ×2 (04:02→14:23)
[2018-12-03] MEDS: metroNIDAZOLE 500 mg/NS 100 ML IV SCH ×3 (05:36→22:00)
[2018-12-03 06:36] LABS: BASOPHILS % (AUTO) 0.4 % (0.0-2.0); EOSINOPHILS # (AUTO) 0.1 K/uL (0.0-0.4); EOSINOPHILS % (AUTO) 1.2 % (0.0-4.0); HEMATOCRIT 31.2 % (36-48); HEMOGLOBIN 10.6 g/dL (12.0-16.0); LYMPHOCYTES # (AUTO) 0.8 K/uL (1.0-5.5); LYMPHOCYTES % (AUTO) 14.8 % (20.5-51.5); MEAN CORPUSCULAR HEMOGLOBIN 34 pg (27-31); MEAN CORPUSCULAR HGB CONC 34 % (32-36); MEAN CORPUSCULAR VOLUME 99 fL (79.0-98.0); MONOCYTES # (AUTO) 0.4 K/uL (0.0-1.0); MONOCYTES % (AUTO) 6.5 % (1.7-9.3); NEUTROPHILS # (AUTO) 4.4 K/uL (1.8-7.7); NEUTROPHILS % (AUTO) 77.1 % (40.0-70.0); PLATELET COUNT (AUTO) 197 K/uL (130-430); RED BLOOD CELL COUNT(AUTO) 3.16 MIL/uL (4.2-6.2); RED CELL DISTRIBUTION WIDTH 15.2 % (9.0-15.0); WHITE BLOOD COUNT (AUTO) 5.7 K/uL (4.8-10.8)
[2018-12-03 06:50] LABS: ALBUMIN 1.9 g/dL (3.4-4.8); CALCIUM 7.8 mg/dL (8.4-11.0); CREATININE 0.86 mg/dL (0.55-1.30); POTASSIUM 3.5 mmol/L (3.5-5.1); TOTAL BILIRUBIN 0.5 mg/dL (0.0-1.0)
[2018-12-03] MEDS: FOLIC ACID 1 MG TABLET PO SCH (08:14)
[2018-12-03] MEDS: ATENOLOL 25 MG TABLET(TENORMIN) PO SCH (08:15)
[2018-12-03] MEDS: FAMOTIDINE PF 20 MG/2 ML VIAL IVP SCH ×2 (08:16→20:44)
[2018-12-03] MEDS: CARVEDILOL 3.125 MG TABLET (COREG) PO SCH ×2 (08:16→20:46)
[2018-12-03] MEDS: LISINOPRIL 5 MG TABLET PO SCH ×2 (08:17→20:45)
[2018-12-03] MEDS: FERROUS SULFATE 140 MG TABLET.ER PO SCH (08:17)
[2018-12-03 08:51] LABS: ERYTHROCYTE SEDIMENTATION RATE 43 MM/HR (0-20)
[2018-12-03] MEDS: chlordiazePOXIDE HCL 25 MG CAPSULE PO SCH ×3 (09:35→20:45)
[2018-12-03] MEDS ORDERED: NITROGLYCERIN 1 INCH (GM) OINT. TP ONE (10:30)
[2018-12-03 10:38] LABS: CALCIUM 7.9 mg/dL (8.4-11.0); CREATININE 0.78 mg/dL (0.55-1.30); POTASSIUM 3.6 mmol/L (3.5-5.1)
[2018-12-03 10:42] LABS: PHOSPHORUS 1.2 mg/dL (2.7-4.5)
[2018-12-03] MEDS ORDERED: INSULIN GLARGINE 100 UNITS/ML 10 ML VIAL SUBCUT ONE (10:45)
[2018-12-03] MEDS ORDERED: INSULIN Lispro 100 UNITS/ML VIAL (humaLOG) SUBCUT ONE (10:45)
[2018-12-03] MEDS: INSULIN LISPRO SLIDING SCALE 100 UNITS/ML VIAL (humaLOG) SUBCUT PRN ×3 (15:34→22:35)
[2018-12-03] MEDS: KCL 20 mEq in D5/0.45NS 1000mL 1,000 ML IV SCH ×2 (15:41→22:32)
[2018-12-03] MEDS: CEFEPIME 1 GM in D5W 50 ML IV SCH (15:41)
[2018-12-03] MEDS: NACL 0.9% IV SCH (17:42)
[2018-12-03] MEDS: FOLIC ACID IV SCH (17:42)
[2018-12-03] MEDS: MVI IV SCH (17:42)
[2018-12-03] MEDS: THIAMINE HCL IV SCH (17:42)
[2018-12-03 18:44] LABS: CALCIUM 7.8 mg/dL (8.4-11.0); CREATININE 0.87 mg/dL (0.55-1.30); POTASSIUM 3.3 mmol/L (3.5-5.1)
[2018-12-03] MEDS: GABAPENTIN 100 MG CAPSULE PO SCH (20:46)
[2018-12-03] MEDS: NITROGLYCERIN 1 INCH (GM) OINT. TP SCH (20:46)
[2018-12-03] MEDS ORDERED: metroNIDAZOLE 500 mg/NS 100 ML IV SCH (21:00)
[2018-12-03] MEDS ORDERED: POTASSIUM CHLORIDE 40 MEQ in D5W 250 ML IV ONE (21:15)
[2018-12-04] VITALS (24 sets, daily range): BP systolic 136–190
[2018-12-04] MEDS: cloNIDine HCL 0.1 MG TABLET PO PRN ×2 (00:55→06:43)
[2018-12-04] MEDS: INSULIN LISPRO SLIDING SCALE 100 UNITS/ML VIAL (humaLOG) SUBCUT PRN ×6 (02:39→22:55)
[2018-12-04] MEDS: KCL 20 mEq in D5/0.45NS 1000mL 1,000 ML IV SCH ×2 (05:19→16:43)
[2018-12-04] MEDS: metroNIDAZOLE 500 mg/NS 100 ML IV SCH ×3 (06:00→22:47)
[2018-12-04 06:05] LABS: BASOPHILS % (AUTO) 0.6 % (0.0-2.0); EOSINOPHILS # (AUTO) 0.1 K/uL (0.0-0.4); EOSINOPHILS % (AUTO) 1.8 % (0.0-4.0); HEMATOCRIT 29.9 % (36-48); HEMOGLOBIN 10.3 g/dL (12.0-16.0); LYMPHOCYTES % (AUTO) 17.1 % (20.5-51.5); MEAN CORPUSCULAR HEMOGLOBIN 34 pg (27-31); MEAN CORPUSCULAR HGB CONC 35 % (32-36); MEAN CORPUSCULAR VOLUME 98 fL (79.0-98.0); MONOCYTES # (AUTO) 0.4 K/uL (0.0-1.0); MONOCYTES % (AUTO) 6.5 % (1.7-9.3); NEUTROPHILS # (AUTO) 4.2 K/uL (1.8-7.7); PLATELET COUNT (AUTO) 210 K/uL (130-430); RED BLOOD CELL COUNT(AUTO) 3.05 MIL/uL (4.2-6.2); RED CELL DISTRIBUTION WIDTH 14.7 % (9.0-15.0); WHITE BLOOD COUNT (AUTO) 5.7 K/uL (4.8-10.8)
[2018-12-04 06:26] LABS: PROTHROMBIN TIME 9.8 SECS (9.5-12.5)
[2018-12-04 06:50] LABS: C-REACTIVE PROTEIN QUANT 9.3 mg/dL (0-0.5); CALCIUM 7.8 mg/dL (8.4-11.0); CREATININE 0.58 mg/dL (0.55-1.30); POTASSIUM 3.2 mmol/L (3.5-5.1); TOTAL BILIRUBIN 0.6 mg/dL (0.0-1.0)
[2018-12-04] MEDS ORDERED: K PHOS 20 MM in NS 250 ML IV ONE (08:30)
[2018-12-04 08:33] LABS: ERYTHROCYTE SEDIMENTATION RATE 56 MM/HR (0-20)
[2018-12-04] MEDS: LISINOPRIL 5 MG TABLET PO SCH ×2 (08:57→21:04)
[2018-12-04] MEDS: NITROGLYCERIN 1 INCH (GM) OINT. TP SCH ×2 (08:57→21:59)
[2018-12-04] MEDS: chlordiazePOXIDE HCL 25 MG CAPSULE PO SCH (08:57)
[2018-12-04] MEDS: CARVEDILOL 3.125 MG TABLET (COREG) PO SCH ×2 (08:58→21:05)
[2018-12-04] MEDS: FOLIC ACID 1 MG TABLET PO SCH (08:58)
[2018-12-04] MEDS: FAMOTIDINE PF 20 MG/2 ML VIAL IVP SCH ×2 (08:58→21:04)
[2018-12-04] MEDS: FERROUS SULFATE 140 MG TABLET.ER PO SCH (08:59)
[2018-12-04] MEDS: ATENOLOL 25 MG TABLET(TENORMIN) PO SCH (08:59)
[2018-12-04] MEDS ORDERED: INSULIN GLARGINE 100 UNITS/ML 10 ML VIAL SUBCUT ONE ×2 (11:52→12:00)
[2018-12-04] MEDS: CEFEPIME 1 GM in D5W 50 ML IV SCH (16:40)
[2018-12-04 17:14] LABS: CALCIUM 7.9 mg/dL (8.4-11.0); CREATININE 0.74 mg/dL (0.55-1.30); POTASSIUM 3.1 mmol/L (3.5-5.1)
[2018-12-04] MEDS: ACETAMINOPHEN 325 MG TABLET PO PRN ×2 (17:16→21:09)
[2018-12-04] MEDS ORDERED: KCL 20 mEq in 100 mL (PREMIX) 100 ML IV ONE (19:30)
[2018-12-04] MEDS ORDERED: chlordiazePOXIDE HCL 10 MG CAPSULE PO SCH (21:00)
[2018-12-04] MEDS: GABAPENTIN 100 MG CAPSULE PO SCH (21:05)
[2018-12-05] VITALS (20 sets, daily range): BP systolic 110–188
[2018-12-05] MEDS: KCL 20 mEq in D5/0.45NS 1000mL 1,000 ML IV SCH ×2 (03:37→13:31)
[2018-12-05] MEDS: INSULIN LISPRO SLIDING SCALE 100 UNITS/ML VIAL (humaLOG) SUBCUT PRN ×5 (03:40→21:39)
[2018-12-05 05:34] LABS: BASOPHILS # (AUTO) 0.1 K/uL (0.0-0.2); EOSINOPHILS # (AUTO) 0.2 K/uL (0.0-0.4); EOSINOPHILS % (AUTO) 4.3 % (0.0-4.0); HEMATOCRIT 31.8 % (36-48); HEMOGLOBIN 10.8 g/dL (12.0-16.0); LYMPHOCYTES # (AUTO) 1.2 K/uL (1.0-5.5); LYMPHOCYTES % (AUTO) 22.3 % (20.5-51.5); MEAN CORPUSCULAR HEMOGLOBIN 34 pg (27-31); MEAN CORPUSCULAR HGB CONC 34 % (32-36); MEAN CORPUSCULAR VOLUME 99 fL (79.0-98.0); MONOCYTES # (AUTO) 0.5 K/uL (0.0-1.0); MONOCYTES % (AUTO) 9.9 % (1.7-9.3); NEUTROPHILS # (AUTO) 3.3 K/uL (1.8-7.7); NEUTROPHILS % (AUTO) 62.5 % (40.0-70.0); PLATELET COUNT (AUTO) 230 K/uL (130-430); RED BLOOD CELL COUNT(AUTO) 3.22 MIL/uL (4.2-6.2); RED CELL DISTRIBUTION WIDTH 14.8 % (9.0-15.0); WHITE BLOOD COUNT (AUTO) 5.3 K/uL (4.8-10.8)
[2018-12-05 05:48] LABS: ALBUMIN 2.1 g/dL (3.4-4.8); C-REACTIVE PROTEIN QUANT 8.2 mg/dL (0-0.5); CALCIUM 7.9 mg/dL (8.4-11.0); CREATININE 0.65 mg/dL (0.55-1.30); POTASSIUM 3.1 mmol/L (3.5-5.1); TOTAL BILIRUBIN 0.3 mg/dL (0.0-1.0)
[2018-12-05] MEDS: metroNIDAZOLE 500 mg/NS 100 ML IV SCH (06:27)
[2018-12-05] MEDS: cloNIDine HCL 0.1 MG TABLET PO PRN (06:39)
[2018-12-05] MEDS: HYDROcodone/ACETAMIN 5-325 MG TAB (NORCO/ VICODIN) PO PRN ×2 (06:44→16:23)
[2018-12-05 07:18] LABS: ERYTHROCYTE SEDIMENTATION RATE 68 MM/HR (0-20)
[2018-12-05] MEDS ORDERED: POTASSIUM CHLORIDE 20 MEQ TAB.PRT.SR PO ONE (08:00)
[2018-12-05] MEDS ORDERED: KCL 40 mEq in 100 mL (PREMIX) 100 ML IV ONE (08:00)
[2018-12-05] MEDS: FAMOTIDINE PF 20 MG/2 ML VIAL IVP SCH ×2 (08:59→21:40)
[2018-12-05] MEDS ORDERED: INSULIN GLARGINE 100 UNITS/ML 10 ML VIAL SUBCUT SCH (09:00)
[2018-12-05] MEDS: LISINOPRIL 5 MG TABLET PO SCH ×2 (09:00→21:36)
[2018-12-05] MEDS: MULTIVITAMINS TAB 1 TABLET PO SCH (09:00)
[2018-12-05] MEDS: FOLIC ACID 1 MG TABLET PO SCH (09:00)
[2018-12-05] MEDS: ATENOLOL 25 MG TABLET(TENORMIN) PO SCH (09:01)
[2018-12-05] MEDS: THIAMINE HCL 100 MG TABLET PO SCH (09:01)
[2018-12-05] MEDS: FERROUS SULFATE 140 MG TABLET.ER PO SCH (09:02)
[2018-12-05] MEDS: CARVEDILOL 3.125 MG TABLET (COREG) PO SCH ×2 (09:02→21:38)
[2018-12-05] MEDS: NITROGLYCERIN 1 INCH (GM) OINT. TP SCH ×2 (09:29→21:37)
[2018-12-05] MEDS: CEFEPIME 1 GM in D5W 50 ML IV SCH (16:06)
[2018-12-05] MEDS: INSULIN Lispro 100 UNITS/ML VIAL (humaLOG) SUBCUT SCH ×2 (17:45→17:48)
[2018-12-05] MEDS: KCL 20 mEq in NS 1000 mL 1,000 ML IV SCH (17:49)
[2018-12-05] MEDS: GABAPENTIN 100 MG CAPSULE PO SCH (21:36)
[2018-12-06 00:40] VITALS: BP_SYST 137
[2018-12-06 03:17] VITALS: BP_SYST 137
[2018-12-06] MEDS: HYDROcodone/ACETAMIN 5-325 MG TAB (NORCO/ VICODIN) PO PRN (04:15)
[2018-12-06] MEDS: KCL 20 mEq in NS 1000 mL 1,000 ML IV SCH ×2 (04:18→12:23)
[2018-12-06 06:11] LABS: BASOPHILS % (AUTO) 0.7 % (0.0-2.0); EOSINOPHILS # (AUTO) 0.2 K/uL (0.0-0.4); EOSINOPHILS % (AUTO) 5.5 % (0.0-4.0); HEMATOCRIT 28.5 % (36-48); HEMOGLOBIN 9.7 g/dL (12.0-16.0); LYMPHOCYTES # (AUTO) 1.4 K/uL (1.0-5.5); LYMPHOCYTES % (AUTO) 32.8 % (20.5-51.5); MEAN CORPUSCULAR HEMOGLOBIN 34 pg (27-31); MEAN CORPUSCULAR HGB CONC 34 % (32-36); MEAN CORPUSCULAR VOLUME 98 fL (79.0-98.0); MONOCYTES # (AUTO) 0.5 K/uL (0.0-1.0); MONOCYTES % (AUTO) 12.3 % (1.7-9.3); NEUTROPHILS # (AUTO) 2.1 K/uL (1.8-7.7); NEUTROPHILS % (AUTO) 48.7 % (40.0-70.0); PLATELET COUNT (AUTO) 263 K/uL (130-430); RED CELL DISTRIBUTION WIDTH 14.7 % (9.0-15.0); WHITE BLOOD COUNT (AUTO) 4.3 K/uL (4.8-10.8)
[2018-12-06 06:24] LABS: CALCIUM 7.6 mg/dL (8.4-11.0); CREATININE 0.57 mg/dL (0.55-1.30); POTASSIUM 3.9 mmol/L (3.5-5.1)
[2018-12-06] MEDS: INSULIN LISPRO SLIDING SCALE 100 UNITS/ML VIAL (humaLOG) SUBCUT PRN ×4 (06:24→20:20)
[2018-12-06 08:00] VITALS: BP_SYST 144
[2018-12-06] MEDS: FAMOTIDINE PF 20 MG/2 ML VIAL IVP SCH ×2 (08:20→20:10)
[2018-12-06] MEDS: NITROGLYCERIN 1 INCH (GM) OINT. TP SCH ×2 (08:21→20:11)
[2018-12-06] MEDS: MULTIVITAMINS TAB 1 TABLET PO SCH (08:21)
[2018-12-06] MEDS: CARVEDILOL 3.125 MG TABLET (COREG) PO SCH ×2 (08:21→20:10)
[2018-12-06] MEDS: CITALOPRAM HYDROBROMIDE 20 MG TABLET PO SCH (08:21)
[2018-12-06] MEDS: THIAMINE HCL 100 MG TABLET PO SCH (08:21)
[2018-12-06] MEDS: ATENOLOL 25 MG TABLET(TENORMIN) PO SCH (08:21)
[2018-12-06] MEDS: FERROUS SULFATE 140 MG TABLET.ER PO SCH (08:22)
[2018-12-06] MEDS: FOLIC ACID 1 MG TABLET PO SCH (08:22)
[2018-12-06] MEDS: LISINOPRIL 5 MG TABLET PO SCH ×2 (08:22→20:10)
[2018-12-06] MEDS ORDERED: INSULIN GLARGINE 100 UNITS/ML 10 ML VIAL SUBCUT SCH (09:00)
[2018-12-06] MEDS: INSULIN Lispro 100 UNITS/ML VIAL (humaLOG) SUBCUT SCH ×2 (11:19→17:08)
[2018-12-06 12:31] VITALS: BP_SYST 148
[2018-12-06] MEDS: CEFEPIME 1 GM in D5W 50 ML IV SCH (16:29)
[2018-12-06 16:50] VITALS: BP_SYST 140
[2018-12-06 20:00] VITALS: BP_SYST 156
[2018-12-06] MEDS: GABAPENTIN 100 MG CAPSULE PO SCH (20:10)
[2018-12-07 02:30] VITALS: BP_SYST 163
[2018-12-07 05:11] LABS: BASOPHILS % (AUTO) 0.9 % (0.0-2.0); EOSINOPHILS # (AUTO) 0.2 K/uL (0.0-0.4); EOSINOPHILS % (AUTO) 5.7 % (0.0-4.0); HEMATOCRIT 29.6 % (36-48); HEMOGLOBIN 10.1 g/dL (12.0-16.0); LYMPHOCYTES # (AUTO) 1.3 K/uL (1.0-5.5); LYMPHOCYTES % (AUTO) 35.2 % (20.5-51.5); MEAN CORPUSCULAR HEMOGLOBIN 34 pg (27-31); MEAN CORPUSCULAR HGB CONC 34 % (32-36); MEAN CORPUSCULAR VOLUME 98 fL (79.0-98.0); MONOCYTES # (AUTO) 0.5 K/uL (0.0-1.0); MONOCYTES % (AUTO) 13.3 % (1.7-9.3); NEUTROPHILS # (AUTO) 1.7 K/uL (1.8-7.7); NEUTROPHILS % (AUTO) 44.9 % (40.0-70.0); PLATELET COUNT (AUTO) 319 K/uL (130-430); RED BLOOD CELL COUNT(AUTO) 3.01 MIL/uL (4.2-6.2); RED CELL DISTRIBUTION WIDTH 14.8 % (9.0-15.0); WHITE BLOOD COUNT (AUTO) 3.8 K/uL (4.8-10.8)
[2018-12-07 05:24] LABS: C-REACTIVE PROTEIN QUANT 2.3 mg/dL (0-0.5); CREATININE 0.48 mg/dL (0.55-1.30)
[2018-12-07 06:47] LABS: ERYTHROCYTE SEDIMENTATION RATE 66 MM/HR (0-20)
[2018-12-07] MEDS: INSULIN Lispro 100 UNITS/ML VIAL (humaLOG) SUBCUT SCH ×2 (06:50→11:54)
[2018-12-07] MEDS: INSULIN LISPRO SLIDING SCALE 100 UNITS/ML VIAL (humaLOG) SUBCUT PRN ×2 (06:52→11:55)
[2018-12-07] MEDS: ACETAMINOPHEN 325 MG TABLET PO PRN (06:59)
[2018-12-07 08:05] VITALS: BP_SYST 155
[2018-12-07] MEDS: ATENOLOL 25 MG TABLET(TENORMIN) PO SCH (08:39)
[2018-12-07] MEDS: CARVEDILOL 3.125 MG TABLET (COREG) PO SCH (08:39)
[2018-12-07] MEDS: CITALOPRAM HYDROBROMIDE 20 MG TABLET PO SCH (08:39)
[2018-12-07] MEDS: FOLIC ACID 1 MG TABLET PO SCH (08:39)
[2018-12-07] MEDS: THIAMINE HCL 100 MG TABLET PO SCH (08:40)
[2018-12-07] MEDS: MULTIVITAMINS TAB 1 TABLET PO SCH (08:40)
[2018-12-07] MEDS: FERROUS SULFATE 140 MG TABLET.ER PO SCH (08:40)
[2018-12-07] MEDS: LISINOPRIL 5 MG TABLET PO SCH (08:40)
[2018-12-07] MEDS: FAMOTIDINE PF 20 MG/2 ML VIAL IVP SCH (08:41)
[2018-12-07] MEDS: NITROGLYCERIN 1 INCH (GM) OINT. TP SCH (08:41)
[2018-12-07] MEDS ORDERED: INSULIN GLARGINE 100 UNITS/ML 10 ML VIAL SUBCUT SCH (09:00)
[2018-12-07] MEDS ORDERED: INSU100V9 SUBCUT (13:35)
[2018-12-07] MEDS ORDERED: LISI-209 PO (13:35)
[2018-12-07] MEDS ORDERED: CORCR10 PO (13:35)
[2018-12-07] MEDS ORDERED: GABA-529 PO (13:35)
[2018-12-07] MEDS ORDERED: INSU100V SUBCUT (13:35)
[2018-12-07] MEDS ORDERED: CEL20 PO (13:35)
[2018-12-07] MEDS ORDERED: Thiamine Hcl PO (13:35)
[2018-12-07] MEDS ORDERED: Multivitamins Tab PO (13:35)
[2018-12-07 13:53] VITALS: BP_SYST 146
[2018-12-07 14:12] VITALS: BP_SYST 146
== END 2018-12-07 14:50 | disposition home or self-care (01) | DRG 720 ==
LOC: SED 09:49 → SIC 12:43 → STU 12-05 20:36 → SMU 12-06 16:03
PROVIDERS: ADMIT Preventive Medicine Preventive Medicine/Occupational Environmental Medicine; ATTEND Preventive Medicine Preventive Medicine/Occupational Environmental Medicine
DX: A41.9 Sepsis, unspecified organism (principal); J96.00 Acute respiratory failure, unspecified whether with hypoxia or hypercapnia; J69.0 Pneumonitis due to inhalation of food and vomit; E43 Unspecified severe protein-calorie malnutrition; E11.10 Type 2 diabetes mellitus with ketoacidosis without coma; K85.20 Alcohol induced acute pancreatitis without necrosis or infection; E83.39 Other disorders of phosphorus metabolism; K57.92 Diverticulitis of intestine, part unspecified, without perforation or abscess without bleeding; N17.9 Acute kidney failure, unspecified; I50.9 Heart failure, unspecified; E87.5 Hyperkalemia; E87.1 Hypo-osmolality and hyponatremia; D64.9 Anemia, unspecified; E78.5 Hyperlipidemia, unspecified; E83.51 Hypocalcemia; F10.10 Alcohol abuse, uncomplicated; F13.10 Sedative, hypnotic or anxiolytic abuse, uncomplicated; F15.10 Other stimulant abuse, uncomplicated; F17.210 Nicotine dependence, cigarettes, uncomplicated; F32.9 Major depressive disorder, single episode, unspecified; K86.0 Alcohol-induced chronic pancreatitis; H54.61 Unqualified visual loss, right eye, normal vision left eye; I11.0 Hypertensive heart disease with heart failure; Z83.3 Family history of diabetes mellitus; Z88.0 Allergy status to penicillin; Z91.19 Patient's noncompliance with other medical treatment and regimen; Z98.891 History of uterine scar from previous surgery; Z79.899 Other long term (current) drug therapy; Z68.26 Body mass index [BMI] 26.0-26.9, adult
CPT/HCPCS: 36415; 36600; 71045; 80048; 80053; 80061; 80076; 80307; 81000-TC; 82009-TC; 82150-TC; 82550-TC; 82803-TC; 82962; 83036; 83605; 83690-TC; 83735-TC; 84100-TC; 84443-TC; 85025; 85610-TC; 85651-TC; 86140; 87040-TC; 87081; 87086; 93005; 93306; 96361; 96372; 96374; G0378; G0482; J0692; J1815; J1956; J2060; J2270; J3411; J3480; J3490; J7030; J7050; J7060

== ENCOUNTER 2019-10-03 15:41 | Inpatient (IN) | payer MEDICAID ==
[~2019-10-03] VITALS: Ht 167.6 cm; Wt 78.9 kg
[~2019-10-03 15:41] MED LIST changes: -ASPI-1153 PO; +CEL20 PO; +CORCR10 PO; +DOXY100C PO; +FERR140T2 PO; +GABA-529 PO; -GLU500 PO; +INSU100V SUBCUT; +INSU100V9 SUBCUT; +Multivitamins Tab PO; +Thiamine Hcl PO
[2019-10-03 15:49] VITALS: BP_SYST 104
[2019-10-03] MEDS ORDERED: KETOROLAC TROMETHAMINE 30 MG VIAL IVP ONE (16:15)
[2019-10-03] MEDS ORDERED: NACL 0.9% 1,000 ML IV ONE (16:15)
[2019-10-03 16:20] LABS: BILIRUBIN,URINE NEGATIVE (NEGATIVE); BLOOD, URINE 2+ (NEGATIVE); CLARITY/URINE CLEAR (CLEAR); COLOR,URINE YELLOW (YELLOW); GLUCOSE,URINE 3+ (NEGATIVE); KETONES,URINE 1+ (NEGATIVE); LEUKOCYTE ESTERASE ,URINE NEGATIVE (NEGATIVE); NITRITE, URINE NEGATIVE (NEGATIVE); PROTEIN URINE 2+ (NEGATIVE); UROBILINOGEN,URINE 0.2 (0.2-1.0)
[2019-10-03 16:36] LABS: BASOPHILS % (AUTO) 0.7 % (0.0-2.0); EOSINOPHILS # (AUTO) 0.2 K/uL (0.0-0.4); EOSINOPHILS % (AUTO) 2.4 % (0.0-4.0); HEMATOCRIT 41.6 % (36-48); HEMOGLOBIN 13.7 g/dL (12.0-16.0); LYMPHOCYTES # (AUTO) 1.5 K/uL (1.0-5.5); LYMPHOCYTES % (AUTO) 23.9 % (20.5-51.5); MEAN CORPUSCULAR HEMOGLOBIN 32 pg (27-31); MEAN CORPUSCULAR HGB CONC 33 % (32-36); MEAN CORPUSCULAR VOLUME 97 fL (79.0-98.0); MONOCYTES # (AUTO) 0.3 K/uL (0.0-1.0); MONOCYTES % (AUTO) 5.1 % (1.7-9.3); NEUTROPHILS # (AUTO) 4.3 K/uL (1.8-7.7); NEUTROPHILS % (AUTO) 67.9 % (40.0-70.0); PLATELET COUNT (AUTO) 358 K/uL (130-430); RED BLOOD CELL COUNT(AUTO) 4.31 MIL/uL (4.2-6.2); RED CELL DISTRIBUTION WIDTH 14.4 % (9.0-15.0); WHITE BLOOD COUNT (AUTO) 6.4 K/uL (4.8-10.8)
[2019-10-03 16:52] LABS: CALCIUM 9.6 mg/dL (8.4-11.0); CREATININE 0.96 mg/dL (0.55-1.30); POTASSIUM 4.2 mmol/L (3.5-5.1)
[2019-10-03 16:58] LABS: ALBUMIN 2.8 g/dL (3.4-4.8); TOTAL BILIRUBIN 0.4 mg/dL (0.0-1.0)
[2019-10-03 17:07] LABS: BACTERIA,URINE FEW /HPF (None Seen)
[2019-10-03 17:10] LABS: TRICHOMONAS,URINE Few /HPF (None Seen)
[2019-10-03] MEDS ORDERED: INSULIN REGULAR, HUMAN 10 UNITS/0.1 ML INJ IVP ONE (18:15)
[2019-10-03] MEDS ORDERED: ONDANSETRON HCL 4 MG/2 ML VIAL IVP PRN (18:45)
[2019-10-03] MEDS ORDERED: chlordiazePOXIDE HCL 25 MG CAPSULE PO ONE (18:45)
[2019-10-03] MEDS ORDERED: FAMOTIDINE PF 20 MG/2 ML VIAL IVP ONE (18:45)
[2019-10-03] MEDS ORDERED: FOLIC ACID 1 MG, THIAMINE HCL 100 MG, MAGNESIUM SULFATE 1 GM, MVI 10 ML in NACL 0.9% 1,... IV SCH (18:45)
[2019-10-03] MEDS ORDERED: LORazepam 2 MG/ML VIAL IVP PRN (18:45)
[2019-10-03 19:08] VITALS: BP_SYST 122
[2019-10-03] MEDS ORDERED: FLU VACC QS2019-20 36MOS UP/PF 60 MCG/0.5 ML SYRINGE I.M. PRN (19:30)
[2019-10-03] MEDS ORDERED: FOLIC ACID 1 MG, MVI 10 ML in NACL 0.9% 1,000 ML IV SCH (20:00)
[2019-10-03] MEDS: FAMOTIDINE PF 20 MG/2 ML VIAL IVP SCH (20:12)
[2019-10-03] MEDS: FOLIC ACID 1 MG, MVI 10 ML in NACL 0.9% 1,000 ML IV SCH (20:15)
[2019-10-03] MEDS: THIAMINE HCL 100 MG, MAGNESIUM SULFATE 1 GM in NS 100 ML IV SCH (20:16)
[2019-10-03] MEDS: INSULIN REGULAR, HUMAN 100 UNITS/ML, 10 ML VIAL (humuLIN R) SUBCUT PRN (20:21)
[2019-10-03] MEDS ORDERED: ASPI-1155 PO (20:33)
[2019-10-03] MEDS ORDERED: LISI1TAB28 PO (20:33)
[2019-10-03] MEDS ORDERED: INSU100V35 SQ (20:33)
[2019-10-03] MEDS ORDERED: LANS15CA14 PO (20:33)
[2019-10-03] MEDS ORDERED: CEPH-568 PO (20:33)
[2019-10-03] MEDS ORDERED: INSU100I26 SQ (20:33)
[2019-10-03] MEDS ORDERED: CIME800T PO (20:33)
[2019-10-03] MEDS ORDERED: GABA-533 PO (20:33)
[2019-10-03] MEDS ORDERED: ATEN50TA PO (20:33)
[2019-10-03] MEDS ORDERED: FOLI-43 PO (20:34)
[2019-10-03] MEDS ORDERED: FERR-69 PO (21:31)
[2019-10-03] MEDS ORDERED: THIA100T73 PO (22:04)
[2019-10-03] MEDS ORDERED: traMADol HCL HCL 50 MG TABLET (ULTRAM) PO PRN (23:15)
[2019-10-03] MEDS ORDERED: CLINDAMYCIN 600 mg/50mL D5W 100 ML IV ONE (23:39)
[2019-10-03] MEDS: CLINDAMYCIN 600 MG in D5W 50 ML IV SCH (23:55)
[2019-10-04 00:30] VITALS: BP_SYST 139
[2019-10-04] MEDS: traMADol HCL HCL 50 MG TABLET (ULTRAM) PO PRN ×2 (03:32→17:46)
[2019-10-04] MEDS: CLINDAMYCIN 600 MG in D5W 50 ML IV SCH ×3 (05:29→17:39)
[2019-10-04] MEDS ORDERED: CEPHALEXIN 500 MG CAPSULE PO SCH ×2 (06:00→18:00)
[2019-10-04 06:21] LABS: BASOPHILS # (AUTO) 0.1 K/uL (0.0-0.2); EOSINOPHILS # (AUTO) 0.2 K/uL (0.0-0.4); EOSINOPHILS % (AUTO) 3.4 % (0.0-4.0); HEMATOCRIT 37.8 % (36-48); HEMOGLOBIN 12.6 g/dL (12.0-16.0); LYMPHOCYTES # (AUTO) 1.4 K/uL (1.0-5.5); LYMPHOCYTES % (AUTO) 24.8 % (20.5-51.5); MEAN CORPUSCULAR HEMOGLOBIN 32 pg (27-31); MEAN CORPUSCULAR HGB CONC 33 % (32-36); MEAN CORPUSCULAR VOLUME 97 fL (79.0-98.0); MONOCYTES # (AUTO) 0.5 K/uL (0.0-1.0); MONOCYTES % (AUTO) 8.3 % (1.7-9.3); NEUTROPHILS # (AUTO) 3.6 K/uL (1.8-7.7); NEUTROPHILS % (AUTO) 62.5 % (40.0-70.0); PLATELET COUNT (AUTO) 312 K/uL (130-430); RED BLOOD CELL COUNT(AUTO) 3.89 MIL/uL (4.2-6.2); RED CELL DISTRIBUTION WIDTH 14.6 % (9.0-15.0); WHITE BLOOD COUNT (AUTO) 5.8 K/uL (4.8-10.8)
[2019-10-04 06:49] LABS: ALBUMIN 2.5 g/dL (3.4-4.8); CALCIUM 8.4 mg/dL (8.4-11.0); CREATININE 0.88 mg/dL (0.55-1.30); POTASSIUM 4.4 mmol/L (3.5-5.1)
[2019-10-04 07:04] LABS: TOTAL BILIRUBIN 0.7 mg/dL (0.0-1.0)
[2019-10-04 07:50] VITALS: BP_SYST 137
[2019-10-04] MEDS ORDERED: FOLIC ACID 1 MG TABLET PO SCH (09:00)
[2019-10-04] MEDS: FAMOTIDINE PF 20 MG/2 ML VIAL IVP SCH ×2 (09:20→20:37)
[2019-10-04] MEDS: NICOTINE 21 MG/24 HR PATCH.TD24 TD SCH (09:20)
[2019-10-04] MEDS: FOLIC ACID 1 MG TABLET PO SCH (09:21)
[2019-10-04] MEDS: ASPIRIN 81 MG TAB.CHEW PO SCH (09:21)
[2019-10-04] MEDS: LISINOPRIL 20 MG TABLET PO SCH (09:21)
[2019-10-04] MEDS: ATENOLOL 50 MG TABLET (TENORMIN) PO SCH (09:21)
[2019-10-04] MEDS: chlordiazePOXIDE HCL 25 MG CAPSULE PO SCH ×3 (09:21→20:37)
[2019-10-04] MEDS: THIAMINE HCL 100 MG TABLET PO SCH (09:21)
[2019-10-04] MEDS: LR 1,000 ML IV SCH ×3 (12:00→19:45)
[2019-10-04] MEDS: INSULIN REGULAR, HUMAN 100 UNITS/ML, 10 ML VIAL (humuLIN R) SUBCUT PRN ×3 (12:02→20:59)
[2019-10-04 12:29] VITALS: BP_SYST 151
[2019-10-04] MEDS ORDERED: CEPHALEXIN 500 MG CAPSULE PO ONE (15:00)
[2019-10-04 16:58] VITALS: BP_SYST 143
[2019-10-04 20:00] VITALS: BP_SYST 156
[2019-10-04] MEDS: GABAPENTIN 400 MG CAPSULE PO SCH (20:37)
[2019-10-04] MEDS: CEPHALEXIN 500 MG CAPSULE PO SCH (20:40)
[2019-10-04] MEDS: FOLIC ACID 1 MG, MVI 10 ML in NACL 0.9% 1,000 ML IV SCH (20:44)
[2019-10-04] MEDS: THIAMINE HCL 100 MG, MAGNESIUM SULFATE 1 GM in NS 100 ML IV SCH (20:46)
[2019-10-05] MEDS: CLINDAMYCIN 600 MG in D5W 50 ML IV SCH ×5 (00:19→23:39)
[2019-10-05] MEDS: LR 1,000 ML IV SCH ×4 (00:45→20:20)
[2019-10-05 01:49] VITALS: BP_SYST 124
[2019-10-05] MEDS: CEPHALEXIN 500 MG CAPSULE PO SCH ×4 (02:26→21:06)
[2019-10-05] MEDS: INSULIN REGULAR, HUMAN 100 UNITS/ML, 10 ML VIAL (humuLIN R) SUBCUT PRN ×4 (06:23→21:11)
[2019-10-05 06:24] LABS: ALBUMIN 2.2 g/dL (3.4-4.8); CALCIUM 8.3 mg/dL (8.4-11.0); CREATININE 0.84 mg/dL (0.55-1.30); POTASSIUM 4.6 mmol/L (3.5-5.1); TOTAL BILIRUBIN 0.5 mg/dL (0.0-1.0)
[2019-10-05 06:58] LABS: BASOPHILS % (AUTO) 0.8 % (0.0-2.0); EOSINOPHILS # (AUTO) 0.2 K/uL (0.0-0.4); EOSINOPHILS % (AUTO) 3.4 % (0.0-4.0); HEMATOCRIT 37.4 % (36-48); HEMOGLOBIN 12.3 g/dL (12.0-16.0); LYMPHOCYTES # (AUTO) 1.3 K/uL (1.0-5.5); LYMPHOCYTES % (AUTO) 23.2 % (20.5-51.5); MEAN CORPUSCULAR HEMOGLOBIN 33 pg (27-31); MEAN CORPUSCULAR HGB CONC 33 % (32-36); MONOCYTES # (AUTO) 0.5 K/uL (0.0-1.0); MONOCYTES % (AUTO) 9.2 % (1.7-9.3); NEUTROPHILS # (AUTO) 3.5 K/uL (1.8-7.7); NEUTROPHILS % (AUTO) 63.4 % (40.0-70.0); PLATELET COUNT (AUTO) 272 K/uL (130-430); RED BLOOD CELL COUNT(AUTO) 3.79 MIL/uL (4.2-6.2); RED CELL DISTRIBUTION WIDTH 14.4 % (9.0-15.0); WHITE BLOOD COUNT (AUTO) 5.5 K/uL (4.8-10.8)
[2019-10-05 07:21] LABS: MEAN CORPUSCULAR VOLUME 98 fL (79.0-98.0)
[2019-10-05 07:50] VITALS: BP_SYST 125
[2019-10-05] MEDS: LISINOPRIL 20 MG TABLET PO SCH (08:46)
[2019-10-05] MEDS: THIAMINE HCL 100 MG TABLET PO SCH (08:46)
[2019-10-05] MEDS: FAMOTIDINE PF 20 MG/2 ML VIAL IVP SCH ×2 (08:46→21:05)
[2019-10-05] MEDS: FOLIC ACID 1 MG TABLET PO SCH (08:46)
[2019-10-05] MEDS: ATENOLOL 50 MG TABLET (TENORMIN) PO SCH (08:47)
[2019-10-05] MEDS: ASPIRIN 81 MG TAB.CHEW PO SCH (08:47)
[2019-10-05] MEDS: chlordiazePOXIDE HCL 25 MG CAPSULE PO SCH (08:47)
[2019-10-05] MEDS: NICOTINE 21 MG/24 HR PATCH.TD24 TD SCH (08:49)
[2019-10-05] MEDS ORDERED: INSULIN REGULAR, HUMAN 100 UNITS/ML, 10 ML VIAL SUBCUT ONE (13:00)
[2019-10-05 13:11] VITALS: BP_SYST 126
[2019-10-05 16:22] VITALS: BP_SYST 127
[2019-10-05] MEDS: INSULIN NPH 100 UNITS/ML 10 ML VIAL SUBCUT SCH (17:34)
[2019-10-05 20:00] VITALS: BP_SYST 140
[2019-10-05] MEDS: FOLIC ACID 1 MG, MVI 10 ML in NACL 0.9% 1,000 ML IV SCH (20:49)
[2019-10-05] MEDS: THIAMINE HCL 100 MG, MAGNESIUM SULFATE 1 GM in NS 100 ML IV SCH (20:50)
[2019-10-05] MEDS: GABAPENTIN 400 MG CAPSULE PO SCH (21:05)
[2019-10-06] MEDS: CEPHALEXIN 500 MG CAPSULE PO SCH ×2 (02:12→09:43)
[2019-10-06 03:23] VITALS: BP_SYST 142
[2019-10-06] MEDS: CLINDAMYCIN 600 MG in D5W 50 ML IV SCH ×2 (06:14→12:16)
[2019-10-06] MEDS: INSULIN REGULAR, HUMAN 100 UNITS/ML, 10 ML VIAL (humuLIN R) SUBCUT PRN ×2 (06:20→12:18)
[2019-10-06] MEDS: INSULIN NPH 100 UNITS/ML 10 ML VIAL SUBCUT SCH (06:22)
[2019-10-06 06:55] LABS: ALBUMIN 2.2 g/dL (3.4-4.8); CALCIUM 8.5 mg/dL (8.4-11.0); CREATININE 0.72 mg/dL (0.55-1.30); POTASSIUM 4.2 mmol/L (3.5-5.1); TOTAL BILIRUBIN 0.4 mg/dL (0.0-1.0)
[2019-10-06 07:01] LABS: BASOPHILS % (AUTO) 0.7 % (0.0-2.0); EOSINOPHILS # (AUTO) 0.2 K/uL (0.0-0.4); EOSINOPHILS % (AUTO) 4.2 % (0.0-4.0); HEMATOCRIT 35.1 % (36-48); HEMOGLOBIN 11.6 g/dL (12.0-16.0); LYMPHOCYTES % (AUTO) 20.8 % (20.5-51.5); MEAN CORPUSCULAR HEMOGLOBIN 33 pg (27-31); MEAN CORPUSCULAR HGB CONC 33 % (32-36); MEAN CORPUSCULAR VOLUME 98 fL (79.0-98.0); MONOCYTES # (AUTO) 0.4 K/uL (0.0-1.0); MONOCYTES % (AUTO) 7.8 % (1.7-9.3); NEUTROPHILS # (AUTO) 3.2 K/uL (1.8-7.7); NEUTROPHILS % (AUTO) 66.5 % (40.0-70.0); PLATELET COUNT (AUTO) 268 K/uL (130-430); RED BLOOD CELL COUNT(AUTO) 3.57 MIL/uL (4.2-6.2); RED CELL DISTRIBUTION WIDTH 14.4 % (9.0-15.0); WHITE BLOOD COUNT (AUTO) 4.8 K/uL (4.8-10.8)
[2019-10-06 08:00] VITALS: BP_SYST 136
[2019-10-06] MEDS: FAMOTIDINE PF 20 MG/2 ML VIAL IVP SCH (09:26)
[2019-10-06] MEDS: FOLIC ACID 1 MG TABLET PO SCH (09:26)
[2019-10-06] MEDS: THIAMINE HCL 100 MG TABLET PO SCH (09:26)
[2019-10-06] MEDS: ATENOLOL 50 MG TABLET (TENORMIN) PO SCH (09:27)
[2019-10-06] MEDS: ASPIRIN 81 MG TAB.CHEW PO SCH (09:28)
[2019-10-06] MEDS: LISINOPRIL 20 MG TABLET PO SCH (09:28)
[2019-10-06] MEDS: NICOTINE 21 MG/24 HR PATCH.TD24 TD SCH (09:29)
[2019-10-06] MEDS: LR 1,000 ML IV SCH (09:31)
[2019-10-06 12:35] VITALS: BP_SYST 162
== END 2019-10-06 13:26 | disposition left against medical advice (07) | DRG 282 ==
LOC: SED 15:41 → STU 18:43
PROVIDERS: ADMIT Internal Medicine; ATTEND Internal Medicine
DX: K85.20 Alcohol induced acute pancreatitis without necrosis or infection (principal); I11.0 Hypertensive heart disease with heart failure; E44.0 Moderate protein-calorie malnutrition; I50.9 Heart failure, unspecified; E11.65 Type 2 diabetes mellitus with hyperglycemia; E87.1 Hypo-osmolality and hyponatremia; E66.9 Obesity, unspecified; E78.1 Pure hyperglyceridemia; E78.5 Hyperlipidemia, unspecified; F10.239 Alcohol dependence with withdrawal, unspecified; F10.229 Alcohol dependence with intoxication, unspecified; K04.7 Periapical abscess without sinus; F17.210 Nicotine dependence, cigarettes, uncomplicated; Z88.0 Allergy status to penicillin; Z79.2 Long term (current) use of antibiotics; Z79.899 Other long term (current) drug therapy; Z98.891 History of uterine scar from previous surgery; Z79.82 Long term (current) use of aspirin; Z79.4 Long term (current) use of insulin; Z71.41 Alcohol abuse counseling and surveillance of alcoholic; Z68.28 Body mass index [BMI] 28.0-28.9, adult
CPT/HCPCS: 36415; 76700-TC; 80053; 80061; 81000-TC; 82962; 83036; 83690-TC; 84703; 85025; 96361; 96374; 96375; 99285; G0378; G0482; J1815; J1885; J2060; J3411; J3475; J3490; J7030; J7060; J7120

== ENCOUNTER 2019-10-19 19:52 | Emergency (ER) | payer MEDICAID ==
[~2019-10-19] VITALS: Ht 167.6 cm; Wt 77.1 kg
[~2019-10-19 19:52] MED LIST changes: +ASPI-1155 PO; -ATEN-41 PO; +ATEN50TA PO; -CEL20 PO; +CEPH-568 PO; +CIME800T PO; -CORCR10 PO; -DOXY100C PO; +FERR-69 PO; -FERR140T2 PO; -GABA-529 PO; +GABA-533 PO; +INSU100I26 SQ; -INSU100V SUBCUT; +INSU100V35 SQ; -INSU100V9 SUBCUT; +LANS15CA14 PO; -LISI-209 PO; +LISI1TAB28 PO; -Multivitamins Tab PO; -SSNOVOLOG SUBCUT; +THIA100T73 PO; -Thiamine Hcl PO
[2019-10-19 19:56] VITALS: BP_SYST 192
[2019-10-19] MEDS ORDERED: LIDOCAINE 1% 10 MG/ML, 20 ML MDV INJ ONE (20:15)
[2019-10-19] MEDS ORDERED: LIDOCAINE 1%, 20 ML MDV 20 ML ONE (20:32)
[2019-10-19 21:22] VITALS: BP_SYST 192
== END 2019-10-19 21:22 | disposition home or self-care (01) ==
LOC: SED 19:52
DX: L02.01 Cutaneous abscess of face (principal); I11.0 Hypertensive heart disease with heart failure; I50.9 Heart failure, unspecified; E11.9 Type 2 diabetes mellitus without complications; K85.90 Acute pancreatitis without necrosis or infection, unspecified; Z79.899 Other long term (current) drug therapy; Z79.82 Long term (current) use of aspirin; Z88.0 Allergy status to penicillin
CPT/HCPCS: 10060; 99283; J2001

== ENCOUNTER 2019-10-21 22:52 | Emergency (ER) | payer MEDICAID ==
[~2019-10-21] VITALS: Ht 167.6 cm; Wt 77.1 kg
[2019-10-21 22:55] VITALS: BP_SYST 170
--- NOTE | 2019-10-21 22:59 | NUR ---
Patient to ER bed 4 to gown for evaluation. Side rails up. Report given to KEVON AYOUB.
--- NOTE | 2019-10-21 23:02 | NUR ---
Pt presents to ER with c/o wound check. Pt A&Ox4. Pt states she was seen here in the ER for left sided face abscess two days. Pt states she told to come here tonight to get abscess rechecked. Pt denies pain. Pt states left sided face itching. Pt denies fever, chills, nausea and vomiting. Breath sounds bilaterally clear with no use of accessory muscles. Will continue to monitor.
--- NOTE | 2019-10-22 00:04 | NUR ---
ER Dr. Reyna at bedside examining patient.
--- NOTE | 2019-10-22 00:14 | NUR ---
Site to left cheek cleansed with CHG. Site measures approximately less than 1 cm. Bacitracin applied to site. Per MD Reyna, keep wound open to room air.
[2019-10-22] MEDS ORDERED: BACITRACIN 1 GM OINT TP ONE (00:28)
[2019-10-22 00:33] VITALS: BP_SYST 162
--- NOTE | 2019-10-22 00:33 | NUR ---
Patient given written and verbal discharge instructions and verbalizes understanding. ER MD Reyna discussed with patient the results and treatment provided. Patient in stable condition. ID arm band removed. No Rx given. Patient educated on pain management and to follow up with PMD. Pain Scale 0/10. Opportunity for questions provided and answered. Medication side effect fact sheet provided.
== END 2019-10-22 00:33 | disposition home or self-care (01) ==
LOC: SED 22:52
DX: Z48.00 Encounter for change or removal of nonsurgical wound dressing (principal); I11.0 Hypertensive heart disease with heart failure; I50.9 Heart failure, unspecified; E11.9 Type 2 diabetes mellitus without complications; Z88.0 Allergy status to penicillin; Z79.82 Long term (current) use of aspirin; Z79.4 Long term (current) use of insulin; Z79.899 Other long term (current) drug therapy
CPT/HCPCS: 99282

== ENCOUNTER 2021-05-16 18:32 | Emergency (ER) | payer MEDICAID ==
[~2021-05-16 18:32] MED LIST changes: -FAMO-129 PO; +FAMO-279 PO; -LISI1TAB28 PO; +LISI1TAB55 PO
--- NOTE | 2021-05-16 19:01 | NUR ---
CALL FOR TRIAGE, NO ANSWER. NOT IN LOBBY OR OUTSIDE OF LOBBY
--- NOTE | 2021-05-16 19:35 | NUR ---
Patient left without being seen. No further treament done. ER MD aware
--- NOTE | 2021-05-16 19:35 | NUR ---
called patient, no answer
== END 2021-05-16 21:35 | disposition left against medical advice (07) ==
LOC: SED 18:32
DX: E11.9 Type 2 diabetes mellitus without complications (principal); Z53.21 Procedure and treatment not carried out due to patient leaving prior to being seen by health care provider

== ENCOUNTER 2022-05-18 18:48 | Emergency (ER) | payer MEDICAID ==
--- NOTE | 2022-05-18 19:52 | NUR ---
PT CALLED FOR TRIAGE AND NO ANSWER
--- NOTE | 2022-05-18 19:52 | NUR ---
Patient left without being seen. No further treatment provided. ER MD aware
== END 2022-05-18 19:52 | disposition left against medical advice (07) ==
LOC: SED 18:48
DX: R42 Dizziness and giddiness (principal); H92.02 Otalgia, left ear; Z53.21 Procedure and treatment not carried out due to patient leaving prior to being seen by health care provider

== ENCOUNTER 2022-12-24 22:53 | Emergency (ER) | payer MEDICAID ==
[~2022-12-24] VITALS: Ht 167.6 cm; Wt 77.1 kg
[2022-12-24 23:52] VITALS: BP_SYST 159
[2022-12-25] MEDS ORDERED: LIB25 PO (02:00)
[2022-12-25 02:21] VITALS: BP_SYST 136
== END 2022-12-25 02:21 | disposition home or self-care (01) ==
LOC: SED 22:53
DX: F41.9 Anxiety disorder, unspecified (principal); F10.239 Alcohol dependence with withdrawal, unspecified; R07.9 Chest pain, unspecified; E11.9 Type 2 diabetes mellitus without complications; I11.0 Hypertensive heart disease with heart failure; I50.9 Heart failure, unspecified; Z88.0 Allergy status to penicillin; Z79.4 Long term (current) use of insulin; Z79.899 Other long term (current) drug therapy; Y90.6 Blood alcohol level of 120-199 mg/100 ml
CPT/HCPCS: 82962; 99282